=== PATIENT | male | born 1945 ===

== ENCOUNTER 2022-11-21 11:03 | Outpatient (AMB) | payer OTHER, SELFPAY ==
--- NOTE | 2022-11-21 11:05 | A.OFFPC_ITS ---
Vital Signs 11/21/22 11:09 Height 6 ft Weight 186 lb BMI 25.2 BP 132/80 Blood Pressure Location Lt brachial Position Sitting Pulse 72 Pulse Source Pulse Oximeter Pulse Oximetry (%) 98 Intake Visit Reasons: NPV-Diabetes Intake Note: pt is here for hand fabric cutter visit, [facility] Wood Heel Back Liner Required: Yes Wood Heel Back Liner Language: Passenger Service Agent Name: Dixon [id number] Information Interpreted: non-clinical & clinical Accompanied by: Grand Child Allergies No Known Allergies Allergy (Verified 11/21/22 11:28) Medication List - Last Reconciled 11/21/22 by Neo Miller PA-C carvedilol 6.25 mg PO BID clopidogrel 75 mg PO DAILY gabapentin 300 mg PO BID irbesartan-hydrochlorothiazide 300-12.5 mg 1 tab PO DAILY levothyroxine 25 mcg PO DAILY metformin 1,000 mg PO BID omega-3 acid ethyl esters 1 cap PO DAILY pantoprazole 40 mg PO DAILY Tobacco use date assessed: 11/21/22 Fall risk assessment: No Falls in past year Last assessed Fall Risk: 11/21/22 Dental Screening Dental Screen Date: 11/21/22 Did you have a dental visit in the last 12 months?: No Did you have a dental problem in the last 6 months where you did not have access to dental care?: No Was dental information given to patient?: Patient declined HPI NPV-Diabetes HPI Details Patient is a 77-year-old male here today for new patient visit. Patient recently moved from [place] and Bengali-speaking only thus using an flash designer today in office.. Has multiple medical conditions including type 2 diabetes, hypertension, hypothyroidism, coronary artery disease. Cardiac problem: Patient does have a pacemaker in place unclear reason why though reports low heart rate. Likely had AV block. Will refer to cardiology for continued follow-up on his pacemaker. Type 2 diabetes: A1c today at 8.2. Patient continues on metformin a 1000 b.i.d.. [facility] Surgical History (Updated 11/21/22 @ 11:35 by Neo Miller PA-C) History of prostate surgery S/P cardiac pacemaker procedure S/P eye surgery S/P knee surgery Social History Housing: House Alcohol intake: never Patient Tobacco Use Status: Never used Tobacco e-Cigarette/Vaping Use: Never Used Current occupational status: retired Cognitive needs: No Hearing needs: No Vision needs: No Questionnaire PHQ-9 Over the last 2 weeks, how often have you been bothered by any of the following problems? 1. Little interest or pleasure in doing things: not at all 2. Feeling down, depressed, or hopeless: not at all 3. Trouble falling or staying asleep, or sleeping too much: not at all 4. Feeling tired or having little energy: not at all 5. Poor appetite or overeating: not at all 6. Feeling bad about yourself - or that you are a failure or have let yourself or your family down: not at all 7. Trouble concentrating on things, such as reading the newspaper or watching television: not at all 8. Moving or speaking so slowly that other people could have noticed. Or the opposite - being so fidgety or restless that you have been moving around a lot more than usual: not at all 9. Thoughts that you would be better off or of hurting yourself in some way: not at all Total score: 0 Depression Screening Interpretation: Negative 33843 - PHQ-9 Billing: Yes Source: Developed by Drs. Didier Webb, Flaquita Dallas, Joel Terrazas and colleagues, with an educational tayler from [employer]. Thrive Questionnaire Date Thrive assessed: 11/21/22 I am a: Patient What is your living situation today?: I have a steady place to live Within the past 12 months, did the food you bought not last and you didn't have the money to get more?: Never true Within the past 12 months, did you worry whether your food would run out before you got money to buy more?: Never true Do you have trouble paying for medicines?: No Do you have trouble getting transportation to medical appointments?: No Do you have trouble paying your heating and electricity bill?: No Do you have trouble taking care of your child, family member or friend?: No Do you have trouble with day-to-day activities such as bathing, preparing meals, shopping, managing finances, etc.?: No Are you currently unemployed and looking for a job?: No Are you interested in more education?: No Please select the resources that you would like help with: None Currently or been in a relationship where the following occur: no concerns reported TIM-7 AMB Questionnaire TIM-7 Date TIM - 7 assessed: 11/21/22 Feeling nervous, anxious, or on edge: 0 = Not at all Not being able to stop or control worryin = Not at all Worrying too much about different things: 0 = Not at all Trouble relaxin = Not at all Being so restless that it is hard to sit still: 0 = Not at all Becoming easily annoyed or irritable: 0 = Not at all Feeling afraid as if something awful might happen: 0 = Not at all Total TIM-7 score (0-4 normal; 5-9 mild; 10-14 moderate; 15-21 severe): 0 Source: Developed by Drs. Didier Webb, Flaquita Dallas, Joel Terrazas and colleagues, with an educational tayler from [employer]. TIM-7 Assessment Billing TIM-7 Assessment Tool: TIM-7 Assessment 90295 Review of Systems Const Denies headache(s) Eyes Denies loss of vision ENT Denies vertigo, Denies dizziness, Denies headache(s) and Denies sore throat Card Denies chest pain, Denies leg edema and Denies lightheadedness Resp Denies cough, Denies hemoptysis and Denies wheezing GI Denies abdominal pain, Denies melena, Denies constipation, Denies diarrhea and Denies vomiting Denies dysuria, Denies urinary frequency and Denies urinary urgency Musc Denies arthralgias, Denies joint swelling, Denies numbness and Denies tingling Neuro Denies Abnormal speech present, Denies behavioral changes, Denies vertigo, Denies dizziness, Denies headache(s), Denies loss of vision, Denies memory loss, Denies numbness and Denies tingling Psych Denies anxiety, Denies behavioral changes, Denies depression, Denies memory loss and Denies panic attacks John/Lymph Denies easy bleeding and Denies easy bruising Aller/Immun Denies wheezing Physical exam (Primary Care) Vital Signs: Last Vital Signs Pulse 72 11/21/22 11:09 BP 132/80 11/21/22 11:09 Pulse Ox 98 11/21/22 11:09 BMI result Body Mass Index 25.2 Tobacco/Smoking Status: Tobacco use Status Tobacco use date assessed 11/21/22 11/21/22 11:22 Patient Tobacco Use Status Never used Tobacco 11/21/22 11:22 e-Cigarette/Vaping Use Never Used 11/21/22 11:22 PHQ-9: PHQ-9 Score PHQ-9: Total score 0 11/21/22 11:34 Depression Screening Interpretation: Negative Thrive Assessment: Date of Thrive Assessment Date Thrive assessed 11/21/22 11/21/22 11:25 Currently or been in a relationship where the following occur: no concerns reported Const General: healthy appearing, no acute distress, alert and awake Nutritional Appearance: well nourished Orientation/consciousness: oriented to person, oriented to place and oriented to time HENMT Ears: TM's normal bilaterally General nose exam: Normal nasal mucous membranes and turbinates present Eyes Conjunctivae: conjunctivae normal Sclerae: sclerae normal Pupils: Equal, round and reactive pupils present Neck Neck: Yes no lymphadenopathy and Yes no JVD Thyroid: Thyroid normal Carotids: no bruits Resp Effort & Inspection: normal respiratory effort and not tachypneic Auscultation: no crackles, no rales, no rhonchi and no wheezes Cardio Rate: regular rate Rhythm: regular rhythm Heart sounds: no murmurs and normal S1 and S2 GI Palpation (GI): Soft to palpation, nontender, no hepatomegaly and no splenomegaly Auscultation: normal bowel sounds Skin General skin exam: no rashes or lesions noted and dry skin Neuro General: oriented to person, oriented to place and oriented to time Cranial nerves: Yes Equal, round and reactive pupils present Speech: No Abnormal speech present Gait exam (Neuro): Normal gait present Motor exam (neuro): no tremor noted Extrem Right upper extremity: full ROM Left upper extremity: full ROM Right lower extremity: full ROM; no edema Left lower extremity: full ROM; no edema Psych Mental Status: mental status grossly normal Speech and movement: Normal speech and movement present Affect: normal affect Attitude: cooperative Thought process: Normal thought process present Results AMB Hemoglobin A1c AMB Hemoglobin A1c 8.2 % Last Edit by Jose Mehta CMA on 11/21/22 11: 41 Results Reviewed Results Reviewed: Laboratory Last Values Hgb A1c (Clinic) 8.2 % (4.0-6.0) H 11/21/22 11:40 Assessment and Plan Assessment & Plan (1) HTN (hypertension): Code(s): I10 - Essential (primary) hypertension Qualifiers: Hypertension type: primary hypertension Qualified Code(s): I10 - Essential (primary) hypertension Plan: Patient's blood pressure acceptable today in office. Will continue his current dose of antihypertensive medication with goal blood pressure to be below 140/90 (2) HLD (hyperlipidemia): Code(s): E78.5 - Hyperlipidemia, unspecified Qualifiers: Hyperlipidemia type: mixed hyperlipidemia Qualified Code(s): E78.2 - Mixed hyperlipidemia Plan: Patient currently in not on statin therapy. Will check fasting lipids to assure LDL below 100 and if so will consider starting statin (3) DMII (diabetes mellitus, type 2): Code(s): E11.9 - Type 2 diabetes mellitus without complications Qualifiers: Diabetes mellitus complication status: with hyperglycemia Diabetes mellitus ocean transportation intermediary insulin use: without fpc use Qualified Code(s): E11.65 - Type 2 diabetes mellitus with hyperglycemia Plan: Patient's type 2 diabetes suboptimally controlled with A1c at 8.2 today. Will work 1st on lifestyle modifications to help reduce his A1c below goal 8.0 (due to patient's age and comorbidities) (4) AV block, Mobitz 2: Code(s): I44.1 - Atrioventricular block, second degree (5) S/P cardiac pacemaker procedure: Comment: 10/20/2011 model ADDR01 Code(s): Z95.0 - Presence of cardiac pacemaker Plan: Has a Medtronic pacemaker was followed by network programmer while living in [place]. Unclear cardiac diagnosis though likely had AV block. Will try to set him up with local network programmer for continued pacemaker evaluation (6) Hypothyroid: Code(s): E03.9 - Hypothyroidism, unspecified Qualifiers: Hypothyroidism type: unspecified Qualified Code(s): E03.9 - Hypothyroidism, unspecified Plan: Patient continues on low-dose levothyroxine and will check a TSH to assure no rmal. Orders: Orders Comprehensive Evans. Panel Fast Today E11.65 - Type 2 diabetes mellitus with hyperglycemia Lipid Panel Today E78.2 - Mixed hyperlipidemia Prostate Specific Antigen Scr Today I10 - Essential (primary) hypertension, Z12.5 - Encounter for screening for malignant neoplasm of prostate Microalbumin, Random (w Creat) Today E11.65 - Type 2 diabetes mellitus with hyperglycemia Complete Blood Count no Diff Today I10 - Essential (primary) hypertension AMB Hemoglobin A1c Today E11.9 - Type 2 diabetes mellitus without complications Referrals Cardiology Referral I44.1 - Atrioventricular block, second degree, Z95.0 - Presence of cardiac pacemaker Medications: New carvedilol must administer with a meal/food 6.25 mg PO BID 90 days 180 tabs 2RF I44.1 - Atrioventricular block, second degree pantoprazole 40 mg PO DAILY 90 days 90 tabs 2RF K21.9 - Gastro-esophageal reflux disease without esophagitis clopidogrel 75 mg PO DAILY 90 tabs 2RF Z95.0 - Presence of cardiac pacemaker levothyroxine 25 mcg PO DAILY 90 caps 1RF E03.9 - Hypothyroidism, unspecified gabapentin 300 mg PO BID 90 days 180 caps 1RF E11.65 - Type 2 diabetes mellitus with hyperglycemia irbesartan-hydrochlorothiazide 300-12.5 mg 1 tab PO DAILY 90 days 90 tabs 2RF I10 - Essential (primary) hypertension metformin 1,000 mg PO BID 90 days 180 tabs 2RF E11.65 - Type 2 diabetes mellitus with hyperglycemia omega-3 acid ethyl esters 2 caps PO DAILY 90 days 180 caps 2RF E78.2 - Mixed hyperlipidemia Coding Level of Care Code New Pt Level 4 (17900) Diagnoses HTN (hypertension) I10 Hypertension type: primary hypertension HLD (hyperlipidemia) E78.2 Hyperlipidemia type: mixed hyperlipidemia DMII (diabetes mellitus, type 2) E11.65 Diabetes mellitus complication status: with hyperglycemia Diabetes mellitus fpc insulin use: without ocean transportation intermediary use AV block, Mobitz 2 I44.1 S/P cardiac pacemaker procedure Z95.0 Hypothyroid E03.9 Hypothyroidism type: unspecified Additional Codes TIM-7 Assessment Billing - TIM-7 Assessment Tool: TIM-7 Assessment 45803 ([id number])
[2022-11-21 11:09] VITALS: BP 132/80; PULSE 72; O2SAT 98; BMI 25.2
== END 2022-11-21 11:52 | disposition home or self-care (01) ==
PROVIDERS: PCP Physician Assistant; Visit Provider Physician Assistant
DX: I10 Essential (primary) hypertension (principal); E11.65 Type 2 diabetes mellitus with hyperglycemia; E03.9 Hypothyroidism, unspecified; E78.2 Mixed hyperlipidemia; I44.1 Atrioventricular block, second degree; Z95.0 Presence of cardiac pacemaker
CPT/HCPCS: 83036; 99204

== ENCOUNTER 2022-12-29 11:54 | Outpatient (REF) | payer OTHER, SELFPAY ==
[2022-12-29 13:54] LABS: Hematocrit 42.3 % (42.0-52.0); Hemoglobin 14.1 g/dl (14.0-18.0); Mean Corpuscular HGB Conc 33.3 g/dl (31.0-36.0); Mean Corpuscular Hemoglobin 30.8 pg (27.0-33.0); Mean Corpuscular Volume 92.4 fL (80.0-98.0); Mean Platelet Volume 10.6 fL (9.4-12.4); Platelet Count 217 X10*3/uL (160-400); Red Blood Count 4.58 X10*6/uL (4.60-5.80); Red Cell Distribution Width 13.4 % (11.0-16.0); White Blood Count 3.8 X10*3/uL (4.8-10.8)
[2022-12-29 14:29] LABS: Prostate Specific Antigen Scr 2.49 ng/mL (<0.05-4.0)
[2022-12-29 15:00] LABS: Alanine Aminotransferase 29 U/L (0-40); Albumin Level 4.1 g/dL (3.5-5.0); Alkaline Phosphatase 110 U/L (39-117); Anion Gap 11 (12-20); Aspartate Amino Transferase 22 U/L (5-37); Bilirubin Total 0.7 mg/dL (0.0-1.0); Blood Urea Nitrogen 15 mg/dL (9-16); Calcium 9.4 mg/dL (8.4-10.2); Carbon Dioxide 29 mmol/L (22-29); Chloride 103 mmol/L (96-108); Cholesterol 191 mg/dL (<200); Estimated Glomerular Filt Rate > 60; Glucose Fasting 154 mg/dL (60-99); HDL Cholesterol 41 mg/dL (>40); LDL Cholesterol Calculated 121 mg/dL (<100); Potassium 4.4 mmol/L (3.3-5.1); Sodium 139 mmol/L (135-145); Triglycerides 149 mg/dL (<150)
[2022-12-29 15:16] LABS: Microalbum/Creatinine Ratio Ur 38.5 ug/mg cr (<30)
== END 2022-12-29 11:55 | disposition home or self-care (01) ==
LOC: HO.HMGCLDS 11:54
PROVIDERS: PCP Physician Assistant; Visit Provider Physician Assistant
DX: Z12.5 Encounter for screening for malignant neoplasm of prostate (principal); E11.65 Type 2 diabetes mellitus with hyperglycemia; E78.2 Mixed hyperlipidemia; I10 Essential (primary) hypertension
CPT/HCPCS: 36415; 80053; 80061; 82043; 82570; 84153; 85027

== ENCOUNTER 2023-02-22 09:38 | Outpatient (AMB) | payer OTHER, SELFPAY ==
--- NOTE | 2023-02-22 09:41 | A.OFFVIS_ITS ---
Intake Vital Signs 02/22/23 09:42 Height 6 ft Weight 185 lb 3.013 oz BMI 25.1 BP 136/84 Blood Pressure Location Lt brachial Position Sitting Pulse 82 Intake Visit Reasons: NPV/Atrioventricular block/Pacemaker/N. Paul Intake Note: NPV w/ EKG Real Estate Analyst Required: No Accompanied by: granddaughter Allergies No Known Allergies Allergy (Verified 02/22/23 09:45) Medication List - Last Reconciled 02/22/23 by Polo Patterson MD carvedilol 6.25 mg PO BID 90 days clopidogrel 75 mg PO DAILY gabapentin 300 mg PO BID 90 days irbesartan-hydrochlorothiazide 300-12.5 mg 1 tab PO DAILY 90 days levothyroxine 25 mcg PO DAILY metformin 1,000 mg PO BID 90 days omega-3 acid ethyl esters 2 caps PO DAILY 90 days pantoprazole 40 mg PO DAILY 90 days simvastatin 20 mg PO DAILY 90 days HPI HPI Comments History of Present Illness Details Edi is here for consultation regarding various cardiac issues. Previously living in [place]. According to documentation, has a dual- chamber Medtronic pacemaker placed in 2016. Per last evaluation, listed to have battery life of 3 and half years. Atrial pacing was 100% but no significant trigger pacing. Also described to have coronary disease with PDA stenosis. Patient himself states he feels fine. No specific complaints like angina or shortness of breath or in fact anything cardiac sounding. Granddaughter is helping with interpretation. Appropriate form signed. COUNTS INCLUDE 234 BEDS AT THE [facility] Medical History (Updated 02/22/23 @ 10:01 by Polo Patterson MD) Atherosclerotic cardiovascular disease Surgical History S/P knee surgery History of prostate surgery S/P eye surgery S/P cardiac pacemaker procedure Family History (Updated 02/22/23 @ 09:46 by Diana Guzman) Mother No problems noted. Father No problems noted. Social History Housing: House Alcohol intake: never Patient Tobacco Use Status: Never used Tobacco e-Cigarette/Vaping Use: Never Used Current occupational status: retired Cognitive needs: No Hearing needs: No Vision needs: No Review of Systems Const Denies chills, Denies daytime sleepiness, Denies fatigue, Denies fever(s), Denies frequent falls, Denies night sweats, Denies snoring, Denies weakness, Denies weight gain and Denies weight loss Eyes Denies loss of vision ENT Denies dizziness and Denies hearing loss Card Denies chest pain, Denies chest pain with activity, Denies syncope, Denies rapid heart rate, Denies edema, Denies claudication, Denies leg edema, Denies lightheadedness, Denies palpitations, Denies dyspnea, Denies dyspnea on exertion and Denies orthopnea Resp Denies cough, Denies excessive phlegm production, Denies dyspnea, Denies dyspnea on exertion, Denies snoring and Denies wheezing GI Denies abdominal pain, Denies hematochezia, Denies change in bowel habits, Denies change in stool character, Denies heartburn, Denies nausea and Denies vomiting Denies hematuria, Denies dysuria and Denies urinary frequency Musc Denies arthralgias, Denies muscle weakness, Denies numbness and Denies tingling Skin/Breast Denies nail changes and Denies rash Neuro Denies Abnormal speech present, Denies dizziness, Denies syncope, Denies frequent falls, Denies loss of vision, Denies memory loss, Denies numbness, Denies tingling and Denies weakness Psych Denies depression and Denies memory loss Endo Denies fatigue and Denies palpitations Aller/Immun Denies wheezing Physical Exam Vital Signs: Last Vital Signs Pulse 82 02/22/23 09:42 BP 136/84 02/22/23 09:42 BMI result Body Mass Index 25.1 Const General: comfortable and no acute distress Orientation/consciousness: patient oriented x3 HEENT Other: Unremarkable Head: Yes normal to inspection Neck Neck: Yes normal visual inspection Chest Chest palpation & inspection: normal inspection of the chest Resp Auscultation: clear to auscultation bilaterally Cardio Palpation: normal PMI Heart sounds: S1 normal heart sound present, S2 normal heart sound present, no gallops, no murmurs and no rubs GI Palpation (GI): Soft to palpation Back/Spine/Pelvis Other: unremarkable Skin General skin exam: no rashes or lesions noted Neuro General: patient oriented x3 Speech: No Abnormal speech present Extrem General: Yes normal to inspection Psych Mental Status: mental status grossly normal Office Procedures EKG Details: EKG with ventricular paced rhythm at 82/Min. Computer reads atrial pacing as well but can't clearly see the spikes. [id number], Complete Assessment & Plan Assessment & Plan (1) Atherosclerotic cardiovascular disease: Code(s): I25.10 - Atherosclerotic heart disease of lime coronary artery without angina pectoris (2) S/P cardiac pacemaker procedure: Comment: 10/20/2011 model ADDR01 Code(s): Z95.0 - Presence of cardiac pacemaker Plan Per documentation patient has brought, Medtronic dual-chamber pacemaker from 2016. Will arrange interrogation formally. With regard to coronary disease, mention of distal PDA stenosis but no interventions. Clinically, he does not have any chest pain. Will get an echocardiogram for cardiac function assessment. Follow-up is scheduled with pacemaker evaluation. Orders: Orders CA echo transthoracic complete Today I25.10 - Atherosclerotic heart disease of lime coronary artery without angina pectoris Coding Level of Care Code New Pt Level 3 (64094) Diagnoses Atherosclerotic cardiovascular disease I25.10 S/P cardiac pacemaker procedure Z95.0 CPT Codes EKG - CPT: 40585-[id number], Complete ([id number])
[2023-02-22 09:42] VITALS: BP 136/84; PULSE 82; BMI 25.1
== END 2023-02-22 10:15 | disposition home or self-care (01) ==
PROVIDERS: PCP Physician Assistant; Visit Provider Internal Medicine
DX: I25.10 Atherosclerotic heart disease of native coronary artery without angina pectoris (principal); Z95.0 Presence of cardiac pacemaker
CPT/HCPCS: 93010; 99203

== ENCOUNTER → 2023-02-22 09:38 | Outpatient (BNVA) | payer OTHER, SELFPAY | PROVIDERS: PCP Physician Assistant; Visit Provider Internal Medicine | DX: I25.10 Atherosclerotic heart disease of native coronary artery without angina pectoris (principal); I10 Essential (primary) hypertension; I44.30 Unspecified atrioventricular block; Z95.0 Presence of cardiac pacemaker | CPT/HCPCS: 93005; 99202 ==

== ENCOUNTER → 2023-03-07 23:59 | Outpatient (BNV) | payer OTHER, SELFPAY ==
--- NOTE | 2023-03-14 12:39 | A.OFFVIS_ITS ---
Intake Intake Visit Reasons: Remote Device Check- Medtronic Allergies No Known Allergies Allergy (Verified 02/22/23 09:45) [facility] Medical History (Updated 03/15/23 @ 08:37 by Polo Patterson MD) Atherosclerotic cardiovascular disease Surgical History S/P knee surgery History of prostate surgery S/P eye surgery S/P cardiac pacemaker procedure Family History (Updated 02/22/23 @ 09:46 by Diana Guzman) Mother No problems noted. Father No problems noted. Social History Housing: House Alcohol intake: never Patient Tobacco Use Status: Never used Tobacco e-Cigarette/Vaping Use: Never Used Current occupational status: retired Cognitive needs: No Hearing needs: No Vision needs: No Office Procedures Cardiac Device Check Cardiac Device Check Details: Date of service- 03/07/2023 ; Battery life 24 months (7-41 months); normal lead parameters; AP <0.1%%; MUFFLE OPERATOR >99%; no significant arrhythmias. Overall normal device function. [id number] Cardiac Device Interrogation, pacemaker Procedure code (CPT) selection complete Assessment & Plan Assessment & Plan (1) Heart block: Code(s): I45.9 - Conduction disorder, unspecified Plan x Coding Level of Care Code Procedure Only Diagnoses Heart block I45.9 CPT Codes Cardiac Device Check - Cardiac Device 12: 36070-Adynoc Cardiac Device Interrogation, pacemaker ([id number])
== END ==
PROVIDERS: PCP Physician Assistant; Visit Provider Internal Medicine
DX: I45.9 Conduction disorder, unspecified (principal); Z95.0 Presence of cardiac pacemaker
CPT/HCPCS: 93294

== ENCOUNTER 2023-03-26 13:42 | Outpatient (AMB) | payer OTHER, SELFPAY ==
--- NOTE | 2023-03-26 13:55 | A.OFFVIS_ITS ---
Intake Vital Signs 03/26/23 13:56 Height 6 ft Weight 180 lb 12.465 oz BMI 24.5 BP 132/82 Blood Pressure Location Rt brachial Position Sitting Pulse 80 Pulse Source Pulse Oximeter Intake Visit Reasons: 1 mth fu after echo w/ medtronic Intake Note: 1 month follow up Manager Car Required: No Accompanied by: granddaughter Allergies No Known Allergies Allergy (Verified 03/26/23 13:55) Medication List - Last Reconciled 03/26/23 by Polo Patterson MD carvedilol 6.25 mg PO BID 90 days clopidogrel 75 mg PO DAILY gabapentin 300 mg PO BID 90 days irbesartan-hydrochlorothiazide 300-12.5 mg 1 tab PO DAILY 90 days levothyroxine 25 mcg PO DAILY metformin 1,000 mg PO BID 90 days omega-3 acid ethyl esters 2 caps PO DAILY 90 days pantoprazole 40 mg PO DAILY 90 days simvastatin 20 mg PO DAILY 90 days HPI HPI Comments History of Present Illness Details Edi returns for follow-up. Recently seen in consultation regarding various cardiac issues. Used to live in [place] but has moved here. According to documentation, has a dual-chamber Medtronic pacemaker placed in 2016. Also described to have coronary disease with PDA stenosis. Patient himself states he feels fine. No specific complaints like angina or shortness of breath or in fact anything cardiac sounding. Granddaughter is helping with interpretation. Appropriate form signed. [facility] Medical History (Updated 03/15/23 @ 08:37 by Polo Patterson MD) Atherosclerotic cardiovascular disease Surgical History S/P knee surgery History of prostate surgery S/P eye surgery S/P cardiac pacemaker procedure Family History Mother No problems noted. Father No problems noted. Social History Housing: House Alcohol intake: never Patient Tobacco Use Status: Never used Tobacco e-Cigarette/Vaping Use: Never Used Current occupational status: retired Cognitive needs: No Hearing needs: No Vision needs: No Review of Systems Const Denies weakness ENT Denies dizziness Card Denies chest pain, Denies chest pain with activity, Denies syncope, Denies rapid heart rate, Denies pedal edema, Denies edema, Denies leg edema, Denies lightheadedness, Denies palpitations, Denies dyspnea, Denies dyspnea on exertion and Denies orthopnea Resp Denies cough, Denies dyspnea and Denies dyspnea on exertion GI Denies hematochezia and Denies change in stool character Musc Denies abnormal gait, Denies muscle cramps, Denies muscle weakness, Denies numbness, Denies radiating pain into limb and Denies tingling Neuro Denies abnormal gait, Denies dizziness, Denies syncope, Denies numbness, Denies tingling and Denies weakness Endo Denies palpitations Physical Exam Vital Signs: Last Vital Signs Pulse 80 03/26/23 13:56 BP 132/82 03/26/23 13:56 BMI result Body Mass Index 24.5 Const General: comfortable and no acute distress Orientation/consciousness: patient oriented x3 HEENT Other: Unremarkable Head: Yes normal to inspection Neck Neck: Yes normal visual inspection Chest Chest palpation & inspection: normal inspection of the chest Resp Auscultation: clear to auscultation bilaterally Cardio Palpation: normal PMI Heart sounds: S1 normal heart sound present, S2 normal heart sound present, no gallops, no murmurs and no rubs GI Palpation (GI): Soft to palpation Back/Spine/Pelvis Other: unremarkable Skin General skin exam: no rashes or lesions noted Neuro General: patient oriented x3 Extrem General: Yes normal to inspection Psych Mental Status: mental status grossly normal Office Procedures Cardiac Device Check Cardiac Device Check Details: Pacemaker interrogated today. Dual-chamber device, programmed DDDR mode. Battery status 9-27 months. Atrial pacing 22%. Ventricular pacing 100%. Normal lead parameters. Overall, normal device function. [id number] Cardiac Device Check, pacemaker dual lead Procedure code (CPT) selection complete Assessment & Plan Assessment & Plan (1) Atherosclerotic cardiovascular disease: Code(s): I25.10 - Atherosclerotic heart disease of [place] coronary artery without angina pectoris Plan: Mention of distal PDA stenosis but no interventions. Clinically, he has got absolutely no angina. Lipids on the higher side and he just started statins. (2) S/P cardiac pacemaker procedure: Comment: 10/20/2011 model ADDR01 Code(s): Z95.0 - Presence of cardiac pacemaker Plan: Pacemaker is function normally. Will followed remotely. (3) HTN (hypertension): Code(s): I10 - Essential (primary) hypertension Qualifiers: Hypertension type: primary hypertension Qualified Code(s): I10 - Essential (primary) hypertension Plan: Stable. On carvedilol, irbesartan/hydrochlorothiazide. No changes. Coding Level of Care Code Est Pt Level 3 (98157) Diagnoses Atherosclerotic cardiovascular disease I25.10 S/P cardiac pacemaker procedure Z95.0 Primary hypertension I10 Hypertension type: primary hypertension CPT Codes Cardiac Device Check - Cardiac Device 2: [id number]-CV Cardiac Device Check, pacemaker dual lead ([id number])
[2023-03-26 13:56] VITALS: BP 132/82; PULSE 80; BMI 24.5
== END 2023-03-26 14:15 | disposition home or self-care (01) ==
PROVIDERS: PCP Physician Assistant; Visit Provider Internal Medicine
DX: I25.10 Atherosclerotic heart disease of native coronary artery without angina pectoris (principal); I10 Essential (primary) hypertension; I44.1 Atrioventricular block, second degree; Z95.0 Presence of cardiac pacemaker
CPT/HCPCS: 93280; 99213

== ENCOUNTER → 2023-03-26 13:42 | Outpatient (BNVA) | payer OTHER, SELFPAY | PROVIDERS: PCP Physician Assistant; Visit Provider Internal Medicine | DX: Z45.018 Encounter for adjustment and management of other part of cardiac pacemaker (principal); I25.10 Atherosclerotic heart disease of native coronary artery without angina pectoris; I10 Essential (primary) hypertension | CPT/HCPCS: 93280; 99212 ==

== ENCOUNTER 2023-07-25 10:47 | Outpatient (AMB) | payer MEDICARE, SELFPAY ==
[2023-07-25 10:59] VITALS: BP 118/64; PULSE 88; O2SAT 98; BMI 24.6
--- NOTE | 2023-07-25 10:59 | MHC.PC.OV ---
Vital Signs 07/25/23 10:59 Height 6 ft Weight 181 lb 8 oz BMI 24.6 BP 118/64 Blood Pressure Location Lt brachial Position Sitting Pulse 88 Pulse Source Pulse Oximeter Pulse Oximetry (%) 98 Oxygen Delivery Method Room Air Intake Visit Reasons: Pain in right arm R/S from 07/22 Intake Note: The patient presents with discomfort in the right shoulder extending down the entire right arm, along with ongoing right leg pain persisting for several months. Engineering Vice President Required: No Accompanied by: Grand Child Allergies No Known Allergies Allergy (Verified 07/25/23 11:15) Medication List - Last Reconciled 07/25/23 by Neo Miller PA-C carvedilol 6.25 mg PO BID 90 days clopidogrel 75 mg PO DAILY gabapentin 300 mg PO BID 90 days irbesartan-hydrochlorothiazide 300-12.5 mg 1 tab PO DAILY 90 days levothyroxine 25 mcg PO DAILY metformin 1,000 mg PO BID 90 days omega-3 acid ethyl esters 2 caps PO DAILY 90 days pantoprazole 40 mg PO DAILY 90 days simvastatin 20 mg PO DAILY 90 days Tobacco use date assessed: 07/25/23 Fall risk assessment: No Falls in past year Last assessed Fall Risk: 07/25/23 Dental Screening Dental Screen Date: 07/25/23 Did you have a dental visit in the last 12 months?: No Did you have a dental problem in the last 6 months where you did not have access to dental care?: No Was dental information given to patient?: Patient has dentist HPI Pain in right arm R/S from 07/22 HPI Details Patient is a 78-year-old male here today for problem visit. Has multiple medical conditions including type 2 diabetes, hypertension, hypothyroidism, coronary artery disease. Patient reports having right shoulder and pain over the last several months. He reports his pain radiates down right upper extremity in 2 forearm and wrist. Has use Tylenol though has not been effective. Also reports having knumbess in his bilateral lower extremities. CHRONIC MEDICAL PROBLEMS--> Av block/ pacemaker : Patient followed by Cardiology and pacemaker has been interrogated.. Type 2 diabetes: A1c today at 8.2. Patient continues on metformin a 1000 b.i.d.. [facility] Medical History (Updated 07/25/23 @ 11:24 by Neo Miller PA-C) Atherosclerotic cardiovascular disease Surgical History S/P knee surgery History of prostate surgery S/P eye surgery S/P cardiac pacemaker procedure Family History Mother No problems noted. Father No problems noted. Social History Housing: House Alcohol intake: never Patient Tobacco Use Status: Never used Tobacco e-Cigarette/Vaping Use: Never Used service: No Current occupational status: retired Cognitive needs: No Hearing needs: No Vision needs: No Questionnaire PHQ-9 Over the last 2 weeks, how often have you been bothered by any of the following problems? 1. Little interest or pleasure in doing things: not at all 2. Feeling down, depressed, or hopeless: not at all 3. Trouble falling or staying asleep, or sleeping too much: not at all 4. Feeling tired or having little energy: not at all 5. Poor appetite or overeating: not at all 6. Feeling bad about yourself - or that you are a failure or have let yourself or your family down: not at all 7. Trouble concentrating on things, such as reading the newspaper or watching television: not at all 8. Moving or speaking so slowly that other people could have noticed. Or the opposite - being so fidgety or restless that you have been moving around a lot more than usual: not at all 9. Thoughts that you would be better off or of hurting yourself in some way: not at all Total score: 0 Depression Screening Interpretation: Negative Depression Screening Done: Yes 21894 - PHQ-9 Billing: Yes Source: Developed by Drs. Didier Webb, Flaquita Dallas, Joel Terrazas and colleagues, with an educational tayler from [employer]. Thrive Questionnaire Date Thrive assessed: 07/25/23 I am a: Patient What is your living situation today?: I have a steady place to live Within the past 12 months, did the food you bought not last and you didn't have the money to get more?: Never true Within the past 12 months, did you worry whether your food would run out before you got money to buy more?: Never true Do you have trouble paying for medicines?: No Do you have trouble getting transportation to medical appointments?: No Do you have trouble paying your heating and electricity bill?: No Do you have trouble taking care of your child, family member or friend?: No Do you have trouble with day-to-day activities such as bathing, preparing meals, shopping, managing finances, etc.?: No Are you currently unemployed and looking for a job?: No Are you interested in more education?: No Please select the resources that you would like help with: None Currently or been in a relationship where the following occur: no concerns reported THRIVE Score: 0 AUDIT C Alcohol Use Questionnaire (AUDIT-C) 1. How often do you have a drink containing alcohol?: Never 3. How often do you have six or more drinks on one occasion?: Never Total Score: 0 TIM-7 AMB Questionnaire TIM-7 Date TIM - 7 assessed: 07/25/23 Feeling nervous, anxious, or on edge: 0 = Not at all Not being able to stop or control worryin = Not at all Worrying too much about different things: 0 = Not at all Trouble relaxin = Not at all Being so restless that it is hard to sit still: 0 = Not at all Becoming easily annoyed or irritable: 0 = Not at all Feeling afraid as if something awful might happen: 0 = Not at all Total TIM-7 score (0-4 normal; 5-9 mild; 10-14 moderate; 15-21 severe): 0 Source: Developed by Drs. Didier Webb, Flaquita Dallas, Joel Terrazas and colleagues, with an educational tayler from [employer]. TIM-7 Assessment Billing TIM-7 Assessment Tool: TIM-7 Assessment 98632 Review of Systems Const Denies headache(s) Eyes Denies loss of vision ENT Denies vertigo, Denies dizziness, Denies headache(s) and Denies sore throat Card Denies chest pain, Denies leg edema and Denies lightheadedness Resp Denies cough, Denies hemoptysis and Denies wheezing GI Denies abdominal pain, Denies melena, Denies constipation, Denies diarrhea and Denies vomiting Denies dysuria, Denies urinary frequency and Denies urinary urgency Musc Denies arthralgias, Denies joint swelling, Denies numbness and Denies tingling Neuro Denies Abnormal speech present, Denies behavioral changes, Denies vertigo, Denies dizziness, Denies headache(s), Denies loss of vision, Denies memory loss, Denies numbness and Denies tingling Psych Denies anxiety, Denies behavioral changes, Denies depression, Denies memory loss and Denies panic attacks John/Lymph Denies easy bleeding and Denies easy bruising Aller/Immun Denies wheezing Physical exam (Primary Care) Vital Signs: Last Vital Signs Pulse 88 07/25/23 10:59 BP 118/64 07/25/23 10:59 Pulse Ox 98 07/25/23 10:59 Oxygen Delivery Method Room Air 07/25/23 10:59 BMI result Body Mass Index 24.6 Tobacco/Smoking Status: Tobacco use Status Tobacco use date assessed 07/25/23 07/25/23 11:08 Patient Tobacco Use Status Never used Tobacco 07/25/23 11:03 e-Cigarette/Vaping Use Never Used 07/25/23 11:03 PHQ-9: PHQ-9 Score PHQ-9: Total score 0 07/25/23 11:17 Depression Screening Interpretation: Negative Thrive Assessment: Date of Thrive Assessment Date Thrive assessed 07/25/23 07/25/23 11:08 Currently or been in a relationship where the following occur: no concerns reported Const General: healthy appearing, no acute distress, alert and awake Nutritional Appearance: well nourished Orientation/consciousness: oriented to person, oriented to place and oriented to time HENMT Ears: TM's normal bilaterally General nose exam: Normal nasal mucous membranes and turbinates present Eyes Conjunctivae: conjunctivae normal Sclerae: sclerae normal Pupils: Equal, round and reactive pupils present Neck Neck: Yes no lymphadenopathy and Yes no JVD Thyroid: Thyroid normal Carotids: no bruits Resp Effort & Inspection: normal respiratory effort and not tachypneic Auscultation: no crackles, no rales, no rhonchi and no wheezes Cardio Rate: regular rate Rhythm: regular rhythm Heart sounds: no murmurs and normal S1 and S2 GI Palpation (GI): Soft to palpation, nontender, no hepatomegaly and no splenomegaly Auscultation: normal bowel sounds Skin General skin exam: no rashes or lesions noted and dry skin Neuro General: oriented to person, oriented to place and oriented to time Cranial nerves: Yes Equal, round and reactive pupils present Speech: No Abnormal speech present Gait exam (Neuro): Normal gait present Motor exam (neuro): no tremor noted Extrem Other: RIGHT SHOULDER: FULL RANGE OF MOTION, NEGATIVE EMPTY CAN, NEGATIVE BRANTLEY TEST. NO PALPABLE DEFORMITIES NOTED Right upper extremity: full ROM Left upper extremity: full ROM Right lower extremity: full ROM; no edema Left lower extremity: full ROM; no edema Psych Mental Status: mental status grossly normal Speech and movement: Normal speech and movement present Affect: normal affect Attitude: cooperative Thought process: Normal thought process present Assessment and Plan Assessment & Plan (1) Right shoulder pain: Code(s): M25.511 - Pain in right shoulder Qualifiers: Chronicity: chronic Qualified Code(s): M25.511 - Pain in right shoulder; G89.29 - Other chronic pain Plan: Patient reporting chronic right shoulder pain and right forearm pain. Denies any numbness or tingling. Likely has a tendinitis right shoulder and forearm. Would benefit from formal physical therapy though reports he does not interested in going to therapy as transportation is difficult. (2) DMII (diabetes mellitus, type 2): Code(s): E11.9 - Type 2 diabetes mellitus without complications Qualifiers: Diabetes mellitus complication status: with hyperglycemia Diabetes mellitus vocational placement specialist insulin use: without alf use Qualified Code(s): E11.65 - Type 2 diabetes mellitus with hyperglycemia Plan: Needs blood work and A1c evaluation. Patient's granddaughter prominences to get labs done fasting before next visit. (3) Diabetic neuropathy: Code(s): E11.40 - Type 2 diabetes mellitus with diabetic neuropathy, unspecified Qualifiers: Diabetes mellitus complication detail: diabetic polyneuropathy Diabetes mellitus type: type 2 Qualified Code(s): E11.42 - Type 2 diabetes mellitus with diabetic polyneuropathy Plan: Patient continues to have bilateral lower extremity numbness likely related to his diabetic neuropathy. Continues with gabapentin. Offered pain management evaluation for topical capsaicin treatment though he declines at this time. Orders: Orders XR shoulder RT min 2V Today G89.29 - Other chronic pain, M25.511 - Pain in right shoulder Comprehensive [place]. Panel Fast Today E11.65 - Type 2 diabetes mellitus with hyperglycemia Hemoglobin A1c Today E11.65 - Type 2 diabetes mellitus with hyperglycemia Lipid Panel Today E11.65 - Type 2 diabetes mellitus with hyperglycemia TSH reflex Free T4 Today E03.9 - Hypothyroidism, unspecified Prostate Specific Antigen Scr Today E03.9 - Hypothyroidism, unspecified, Z12.5 - Encounter for screening for malignant neoplasm of prostate Microalbumin, Random (w Creat) Today I10 - Essential (primary) hypertension Coding Level of Care Code Est Pt Level 4 (20179) Diagnoses Chronic right shoulder pain M25.511; G89.29 Chronicity: chronic Type 2 diabetes mellitus with hyperglycemia, without long-term current use of insulin E11.65 Diabetes mellitus complication status: with hyperglycemia Diabetes mellitus alf insulin use: without alf use Diabetic polyneuropathy associated with type 2 diabetes mellitus E11.42 Diabetes mellitus complication detail: diabetic polyneuropathy Diabetes mellitus type: type 2 Additional Codes TIM-7 Assessment Billing - TIM-7 Assessment Tool: TIM-7 Assessment 11891 ([id number])
== END 2023-07-25 11:40 | disposition home or self-care (01) ==
PROVIDERS: PCP Physician Assistant; Visit Provider Physician Assistant
DX: M25.511 Pain in right shoulder (principal); G89.29 Other chronic pain; E11.65 Type 2 diabetes mellitus with hyperglycemia; E11.42 Type 2 diabetes mellitus with diabetic polyneuropathy
CPT/HCPCS: 99214

== ENCOUNTER 2023-08-03 09:24 | Outpatient (REF) | payer MEDICARE, SELFPAY ==
--- NOTE | ~2023-08-03 | XR_ITS ---
EXAMINATION: XR SHOULDER, RIGHT CLINICAL INFORMATION: Pain in the right shoulder COMPARISON: None available. TECHNIQUE: AP external rotation, Grashey, scapular Y, and axillary views of the right shoulder. FINDINGS: There is moderate osteoarthritis of acromioclavicular joint manifested by marginal osteophytes. Glenohumeral joint: Normal. Incidental note made of a 5 mm dense nodular density in the partially visualized right chest overlying the fifth posterior rib probably reflecting a calcified granuloma XR/XR shoulder RT min 2V IMPRESSION: 1. Moderate osteoarthritis of the acromioclavicular joint. 2. Probable calcified granuloma in the right chest.
[2023-08-03 11:09] LABS: Estimated Average Glucose 197 mg/dL; Hemoglobin A1c % 8.5 % (<6.0)
[2023-08-03 11:35] LABS: Creatinine Urine 89.24 mg/dL; Microalbum/Creatinine Ratio Ur 52.6 ug/mg cr (<30)
[2023-08-03 11:55] LABS: Alanine Aminotransferase 36 U/L (0-40); Alkaline Phosphatase 113 U/L (39-117); Anion Gap 11 (12-20); Aspartate Amino Transferase 23 U/L (5-37); Bilirubin Total 0.6 mg/dL (0.0-1.0); Blood Urea Nitrogen 14 mg/dL (9-16); Calcium 9.1 mg/dL (8.4-10.2); Carbon Dioxide 30 mmol/L (22-29); Chloride 101 mmol/L (96-108); Cholesterol 148 mg/dL (<200); Estimated Glomerular Filt Rate > 60; Glucose Fasting 167 mg/dL (60-99); HDL Cholesterol 43 mg/dL (>40); LDL Cholesterol Calculated 79 mg/dL (<100); Potassium 3.8 mmol/L (3.3-5.1); Sodium 138 mmol/L (135-145); Triglycerides 131 mg/dL (<150)
[2023-08-03 11:58] LABS: TSH reflex Free T4 2.06 uIU/mL (0.32-4.0)
[2023-08-03 12:12] LABS: Prostate Specific Antigen Scr 2.77 ng/mL (<0.05-4.0)
== END 2023-08-03 09:25 | disposition home or self-care (01) ==
LOC: HO.HMGCX 09:24
PROVIDERS: PCP Physician Assistant; Visit Provider Physician Assistant
DX: M25.511 Pain in right shoulder (principal); G89.29 Other chronic pain; E11.65 Type 2 diabetes mellitus with hyperglycemia; I10 Essential (primary) hypertension; E03.9 Hypothyroidism, unspecified; Z12.5 Encounter for screening for malignant neoplasm of prostate
CPT/HCPCS: 36415; 73030; 80053; 80061; 82043; 82570; 83036; 84153; 84443

== ENCOUNTER 2023-12-24 13:54 | Outpatient (AMB) | payer MEDICARE, SELFPAY ==
--- NOTE | 2023-12-24 13:58 | A.OFFPC_ITS ---
Vital Signs 12/24/23 14:06 Height 6 ft Weight 184 lb BMI 25.0 BP 132/80 Blood Pressure Location Lt brachial Position Sitting Pulse 88 Pulse Source Pulse Oximeter Pulse Oximetry (%) 97 Oxygen Delivery Method Room Air Intake Visit Reasons: f/u DMII/ HLD Intake Note: Pt is here for DMII/HLD. Application for disabled parking placard/Plate given to pt. Risk Management Analyst Required: No Accompanied by: Grandson Allergies No Known Allergies Allergy (Verified 12/24/23 14:09) Medication List - Last Reconciled 12/24/23 by Neo Miller PA-C carvedilol 6.25 mg PO BID 90 days clopidogrel 75 mg PO DAILY gabapentin 300 mg PO BID 90 days irbesartan-hydrochlorothiazide 300-12.5 mg 1 tab PO DAILY 90 days levothyroxine 25 mcg PO DAILY metformin 1,000 mg PO BID 90 days omega-3 acid ethyl esters 2 caps PO DAILY 90 days pantoprazole 40 mg PO DAILY 90 days pioglitazone (Actos) 15 mg PO DAILY simvastatin 20 mg PO DAILY 90 days Tobacco use date assessed: 07/25/23 Dental Screening Dental Screen Date: 07/25/23 HPI f/u DMII/ HLD HPI Details Patient is a 78-year-old male here today for follow-up visit Patient has a past medical history which including type 2 diabetes, heart block, s/p pacemaker placement, hypertension, hypothyroidism, coronary artery disease. CHRONIC MEDICAL PROBLEMS--> Av block/ pacemaker : Patient followed by Cardiology and pacemaker has been interrogated. He otherwise denies any syncopal episodes, palpitations or chest pains. Type 2 diabetes: Most recent A1c at 8.5. Patient continues on metformin a 1000 b.i.d in Actos 30 mg.. He does continue to have signs symptoms consistent with a lower extremity neuropathy. Does take gabapentin for his neuropathy. .. Hypothyroidism: Continues on levothyroxine 25 mcg on good most recent TSH stable. .. Hyperlipidemia: Most recent fasting labs showing appropriate total cholesterol and LDL Laboratory Tests 11/21/22 12/29/22 12/29/22 11:40 12:00 12:05 Fasting Glucose Hgb A1c (Clinic) 8.2 H Hemoglobin A1c % Cholesterol LDL Cholesterol, C alc 121 H TSH Urine Microalbumin 59.0 08/03/23 09:30 Fasting Glucose 167 H Hgb A1c (Clinic) Hemoglobin A1c % 8.5 H Cholesterol 148 LDL Cholesterol, C alc 79 TSH 2.06 Urine Microalbumin 47.0 PFSH Medical History Atherosclerotic cardiovascular disease Surgical History S/P knee surgery History of prostate surgery S/P eye surgery S/P cardiac pacemaker procedure Family History Mother No problems noted. Father No problems noted. Social History Housing: House Alcohol intake: never Patient Tobacco Use Status: Never used Tobacco e-Cigarette/Vaping Use: Never Used service: No Current occupational status: retired Cognitive needs: No Hearing needs: No Vision needs: No Questionnaire Thrive Questionnaire Date Thrive assessed: 07/25/23 TIM-7 AMB Questionnaire TIM-7 Date TIM - 7 assessed: 07/25/23 Source: Developed by Drs. Didier Webb, Flaquita Dallas, Joel Terrazas and colleagues, with an educational tayler from [employer]. Review of Systems Const Denies headache(s) Eyes Denies loss of vision ENT Denies vertigo, Denies dizziness, Denies headache(s) and Denies sore throat Card Denies chest pain, Denies leg edema and Denies lightheadedness Resp Denies cough, Denies hemoptysis and Denies wheezing GI Denies abdominal pain, Denies melena, Denies constipation, Denies diarrhea and Denies vomiting Denies dysuria, Denies urinary frequency and Denies urinary urgency Musc Denies arthralgias, Denies joint swelling, Denies numbness and Denies tingling Neuro Denies Abnormal speech present, Denies behavioral changes, Denies vertigo, Denies dizziness, Denies headache(s), Denies loss of vision, Denies memory loss, Denies numbness and Denies tingling Psych Denies anxiety, Denies behavioral changes, Denies depression, Denies memory loss and Denies panic attacks John/Lymph Denies easy bleeding and Denies easy bruising Aller/Immun Denies wheezing Physical exam (Primary Care) Vital Signs: Last Vital Signs Pulse 88 12/24/23 14:06 BP 132/80 12/24/23 14:06 Pulse Ox 97 12/24/23 14:06 Oxygen Delivery Method Room Air 12/24/23 14:06 BMI result Body Mass Index 25.0 Tobacco/Smoking Status: Tobacco use Status Tobacco use date assessed 07/25/23 12/24/23 13:59 Patient Tobacco Use Status Never used Tobacco 12/24/23 13:59 e-Cigarette/Vaping Use Never Used 12/24/23 13:59 Thrive Assessment: Date of Thrive Assessment Date Thrive assessed 07/25/23 12/24/23 13:59 Const General: healthy appearing, no acute distress, alert and awake Nutritional Appearance: well nourished Orientation/consciousness: oriented to person, oriented to place and oriented to time HENMT Ears: TM's normal bilaterally General nose exam: Normal nasal mucous membranes and turbinates present Eyes Conjunctivae: conjunctivae normal Sclerae: sclerae normal Pupils: Equal, round and reactive pupils present Neck Neck: Yes no lymphadenopathy and Yes no JVD Thyroid: Thyroid normal Carotids: no bruits Resp Effort & Inspection: normal respiratory effort and not tachypneic Auscultation: no crackles, no rales, no rhonchi and no wheezes Cardio Rate: regular rate Rhythm: regular rhythm Heart sounds: no murmurs and normal S1 and S2 GI Palpation (GI): Soft to palpation, nontender, no hepatomegaly and no splenomegaly Auscultation: normal bowel sounds Skin General skin exam: no rashes or lesions noted and dry skin Neuro General: oriented to person, oriented to place and oriented to time Cranial nerves: Yes Equal, round and reactive pupils present Speech: No Abnormal speech present Gait exam (Neuro): Normal gait present Motor exam (neuro): no tremor noted Extrem Right upper extremity: full ROM Left upper extremity: full ROM Right lower extremity: full ROM; no edema Left lower extremity: full ROM; no edema Psych Mental Status: mental status grossly normal Speech and movement: Normal speech and movement present Affect: normal affect Attitude: cooperative Thought process: Normal thought process present Results AMB Hemoglobin A1c AMB Hemoglobin A1c 8.2 % Last Edit by GABRIELA Desai on 12/24/23 14:18 Results Reviewed Results Reviewed: Laboratory Last Values Hgb A1c (Clinic) 8.2 % (4.0-6.0) H 12/24/23 13:56 Assessment and Plan Assessment & Plan (1) DMII (diabetes mellitus, type 2): Code(s): E11.9 - Type 2 diabetes mellitus without complications Qualifiers: Diabetes mellitus correction insulin use: without equipment operator intermodal yard use Diabetes mellitus complication status: with hyperglycemia Qualified Code(s): E11.65 - Type 2 diabetes mellitus with hyperglycemia Plan: Patient type 2 diabetes suboptimally controlled with today's A1c at 8.2 from 8.5. He does admit to dietary indiscretion will try to reduce his carbohydrates in his diet. At this time continue his metformin and Actos doses. Goal A1c is to be below 7.0 (2) Diabetic neuropathy: Code(s): E11.40 - Type 2 diabetes mellitus with diabetic neuropathy, unspecified Qualifiers: Diabetes mellitus type: type 2 Diabetes mellitus complication detail: diabetic polyneuropathy Qualified Code(s): E11.42 - Type 2 diabetes mellitus with diabetic polyneuropathy Plan: Patient continues to have bilateral lower extremity numbness likely related to his diabetic neuropathy. Continues with gabapentin. Offered pain management evaluation for topical capsaicin treatment though he declines at this time. (3) HTN (hypertension): Code(s): I10 - Essential (primary) hypertension Qualifiers: Hypertension type: primary hypertension Qualified Code(s): I10 - Essential (primary) hypertension Plan: Patient's blood pressure acceptable today in office, will continue current dose of antihypertensive medication. Goal blood pressures to remain below 140/90 (4) HLD (hyperlipidemia): Code(s): E78.5 - Hyperlipidemia, unspecified Qualifiers: Hyperlipidemia type: mixed hyperlipidemia Qualified Code(s): E78.2 - Mixed hyperlipidemia Plan: Patient's most recent lipid panel showing excellent control of his total cholest charisse and LDL. He will continue current dose of therapy. Goal LDL to remain below 100 (5) Hypothyroid: Code(s): E03.9 - Hypothyroidism, unspecified Qualifiers: Hypothyroidism type: unspecified Qualified Code(s): E03.9 - Hypothyroid ism, unspecified Plan: Most recent TSH stable. Continues on low-dose levothyroxine with good effect. Will continue to follow TSH to assure normal (6) Heart block: Code(s): I45.9 - Conduction disorder, unspecified Plan: Seems to have been stable from a cardiovascular point of view. Does have pacemaker in place. He has been asymptomatic. Now followed by [facility] Orders: Orders TSH reflex Free T4 Today E03.9 - Hypothyroidism, unspecified Lipid Panel Today E78.2 - Mixed hyperlipidemia AMB Hemoglobin A1c Today E11.65 - Type 2 diabetes mellitus with hyperglycemia Complete Blood Count no Diff Today K21.9 - Gastro-esophageal reflux disease without esophagitis Comprehensive [place]. Panel Fast Today E11.65 - Type 2 diabetes mellitus with hyperglycemia Referrals Ophthalmology Referral E11.65 - Type 2 diabetes mellitus with hyperglycemia Patient Instructions: Goal: A1c to be below 8.0, LDL to remain below 100 Barriers: Adherence to physical activity and healthy eating habits Coding Level of Care Code Est Pt Level 4 (68138) Diagnoses Type 2 diabetes mellitus with hyperglycemia, without long-term current use of insulin E11.65 Diabetes mellitus equipment operator intermodal yard insulin use: without equipment operator intermodal yard use Diabetes mellitus complication status: with hyperglycemia Diabetic polyneuropathy associated with type 2 diabetes mellitus E11.42 Diabetes mellitus type: type 2 Diabetes mellitus complication detail: diabetic polyneuropathy Primary hypertension I10 Hypertension type: primary hypertension Mixed hyperlipidemia E78.2 Hyperlipidemia type: mixed hyperlipidemia Hypothyroidism, unspecified type E03.9 Hypothyroidism type: unspecified Heart block I45.9
[2023-12-24 14:06] VITALS: BP 132/80; PULSE 88; O2SAT 97; BMI 25.0
== END 2023-12-24 14:30 | disposition home or self-care (01) ==
PROVIDERS: PCP Physician Assistant; Visit Provider Physician Assistant
DX: E11.65 Type 2 diabetes mellitus with hyperglycemia (principal); E11.42 Type 2 diabetes mellitus with diabetic polyneuropathy; I10 Essential (primary) hypertension; E78.2 Mixed hyperlipidemia; E03.9 Hypothyroidism, unspecified; I45.9 Conduction disorder, unspecified
CPT/HCPCS: 83036; 99214

== ENCOUNTER 2024-01-29 12:27 | Outpatient (AMB) | payer MEDICARE, SELFPAY ==
--- NOTE | 2024-01-29 12:44 | MHC.OFFVIS ---
Vital Signs 01/29/24 12:47 Height 6 ft Weight 185 lb 3.013 oz BMI 25.1 BP 128/74 Blood Pressure Location Lt brachial Position Sitting Pulse 84 Intake Visit Reasons: fu w/ [employer] Collar Folder Operator Required: Yes Collar Folder Operator Services: Collar Folder Operator Offered & Declined Collar Folder Operator Name: Sylvia-niece Accompanied by: Nephew or Niece Allergies No Known Allergies Allergy (Verified 12/24/23 14:09) Medication List - Last Reconciled 01/29/24 by Polo Patterson MD carvedilol 6.25 mg PO BID 90 days clopidogrel 75 mg PO DAILY gabapentin 300 mg PO BID 90 days irbesartan-hydrochlorothiazide 300-12.5 mg 1 tab PO DAILY 90 days levothyroxine 25 mcg PO DAILY metformin 1,000 mg PO BID 90 days omega-3 acid ethyl esters 2 caps PO DAILY 90 days pantoprazole 40 mg PO DAILY 90 days pioglitazone (Actos) 15 mg PO DAILY simvastatin 20 mg PO DAILY 90 days HPI Comments Details: Edi returns for follow-up. Used to live in [place] but has moved here. According to documentation, has a dual-chamber [employer] pacemaker placed in 2016. Also described to have coronary disease with PDA stenosis. Patient does not have any cardiac symptoms including coronary disease or myocardial infarction or cardiomyopathy or in fact anything cardiac sounding. He states he feels fine. Granddaughter is also here. [facility] Medical History Atherosclerotic cardiovascular disease Surgical History S/P knee surgery History of prostate surgery S/P eye surgery S/P cardiac pacemaker procedure Family History Mother No problems noted. Father No problems noted. Social History Housing: House Alcohol intake: never Patient Tobacco Use Status: Never used Tobacco e-Cigarette/Vaping Use: Never Used service: No Current occupational status: retired Cognitive needs: No Hearing needs: No Vision needs: No Review of Systems Const Denies chills, Denies fatigue, Denies fever(s), Denies weight gain and Denies weight loss ENT Denies dizziness Card Denies chest pain, Denies leg edema, Denies lightheadedness, Denies palpitations, Denies dyspnea on exertion, Denies orthopnea and Denies other Resp Denies cough and Denies dyspnea on exertion GI Denies hematochezia and Denies change in stool character Musc Denies abnormal gait, Denies muscle weakness, Denies numbness, Denies radiating pain into limb and Denies tingling Neuro Denies abnormal gait, Denies dizziness, Denies numbness and Denies tingling Endo Denies fatigue and Denies palpitations Physical Exam Vital Signs: Last Vital Signs Pulse 84 01/29/24 12:47 BP 128/74 01/29/24 12:47 BMI result Body Mass Index 25.1 Const General: comfortable and no acute distress Orientation/consciousness: patient oriented x3 HEENT Other: Unremarkable Head: Yes normal to inspection Neck Neck: Yes normal visual inspection Chest Chest palpation & inspection: normal inspection of the chest Resp Auscultation: clear to auscultation bilaterally Cardio Palpation: normal PMI Heart sounds: S1 normal heart sound present, S2 normal heart sound present, no gallops, no murmurs and no rubs GI Palpation (GI): Soft to palpation Back/Spine/Pelvis Other: unremarkable Skin General skin exam: no rashes or lesions noted Neuro General: patient oriented x3 Extrem General: Yes normal to inspection Psych Mental Status: mental status grossly normal Office Procedures Cardiac Device Check Cardiac Device Check Details: Pacemaker interrogated today. Dual-chamber device, programmed DDDR. Battery status 21 months. Normal lead parameters. Pacemaker dependent. NSVT episode, 3 seconds about a year ago but nothing recurrent. Otherwise, no significant arrhythmias. Overall, normal device function. [id number] Cardiac Device Check, pacemaker dual lead Procedure code (CPT) selection complete EKG Details: EKG with atrial sensed, ventricular paced rhythm at 84/Min. [id number], Complete Assessment & Plan Assessment & Plan (1) Atherosclerotic cardiovascular disease: Code(s): I25.10 - Atherosclerotic heart disease of [place] coronary artery without angina pectoris Category: Medical Plan: Mention of distal PDA stenosis but no interventions. Clinically, he has got absolutely no angina. Continue statins. (2) S/P cardiac pacemaker procedure: Code(s): Z95.0 - Presence of cardiac pacemaker Category: Surgical Plan: Normal function. For some reason, not getting remote monitoring. Discussed with granddaughter today. (3) HTN (hypertension): Code(s): I10 - Essential (primary) hypertension Category: Medical Qualifiers: Hypertension type: primary hypertension Qualified Code(s): I10 - Essential (primary) hypertension Plan: Stable. On carvedilol, irbesartan/hydrochlorothiazide. No changes. Coding Level of Care Code Est Pt Level 4 (02045) Diagnoses Atherosclerotic cardiovascular disease I25.10 S/P cardiac pacemaker procedure Z95.0 Primary hypertension I10 Hypertension type: primary hypertension CPT Codes Cardiac Device Check - Cardiac Device 2: [id number] Cardiac Device Check, pacemaker dual lead ([id number]) EKG - CPT: 46022-[id number], Complete ([id number])
[2024-01-29 12:47] VITALS: BP 128/74; PULSE 84; BMI 25.1
== END 2024-01-29 13:12 | disposition home or self-care (01) ==
PROVIDERS: PCP Physician Assistant; Visit Provider Internal Medicine
DX: I25.10 Atherosclerotic heart disease of native coronary artery without angina pectoris (principal); Z95.0 Presence of cardiac pacemaker; I10 Essential (primary) hypertension
CPT/HCPCS: 93010; 93280; 99214

== ENCOUNTER → 2024-01-29 12:27 | Outpatient (BNVA) | payer MEDICARE, SELFPAY | PROVIDERS: PCP Physician Assistant; Visit Provider Internal Medicine | DX: Z45.018 Encounter for adjustment and management of other part of cardiac pacemaker (principal); I25.10 Atherosclerotic heart disease of native coronary artery without angina pectoris; I10 Essential (primary) hypertension; R94.31 Abnormal electrocardiogram [ECG] [EKG] | CPT/HCPCS: 93005; 93280; 99212 ==

== ENCOUNTER 2024-03-21 10:52 | Outpatient (REF) | payer MEDICARE, SELFPAY ==
[2024-03-21 13:16] LABS: Hematocrit 41.3 % (42.0-52.0); Hemoglobin 14.2 g/dl (14.0-18.0); Mean Corpuscular HGB Conc 34.4 g/dl (31.0-36.0); Mean Platelet Volume 10.3 fL (9.4-12.4); Platelet Count 195 X10*3/uL (160-400); Red Blood Count 4.44 X10*6/uL (4.60-5.80); Red Cell Distribution Width 12.3 % (11.0-16.0); White Blood Count 4.5 X10*3/uL (4.8-10.8)
[2024-03-21 13:51] LABS: Alanine Aminotransferase 28 U/L (0-40); Alkaline Phosphatase 94 U/L (39-117); Anion Gap 12 (12-20); Aspartate Amino Transferase 20 U/L (5-37); Bilirubin Total 0.7 mg/dL (0.0-1.0); Blood Urea Nitrogen 15 mg/dL (9-16); Carbon Dioxide 29 mmol/L (22-29); Chloride 103 mmol/L (96-108); Cholesterol 179 mg/dL (<200); Estimated Glomerular Filt Rate > 60; Glucose Fasting 167 mg/dL (60-99); HDL Cholesterol 43 mg/dL (>40); LDL Cholesterol Calculated 98 mg/dL (<100); Sodium 140 mmol/L (135-145); TSH reflex Free T4 3.63 uIU/mL (0.32-4.0); Total Protein 7.1 g/dL (6.5-8.0); Triglycerides 192 mg/dL (<150)
== END 2024-03-21 10:53 | disposition home or self-care (01) ==
LOC: HO.HMGCLDS 10:52
PROVIDERS: PCP Physician Assistant; Visit Provider Physician Assistant
DX: K21.9 Gastro-esophageal reflux disease without esophagitis (principal); E03.9 Hypothyroidism, unspecified; E78.2 Mixed hyperlipidemia; E11.65 Type 2 diabetes mellitus with hyperglycemia
CPT/HCPCS: 36415; 80053; 80061; 84443; 85027

== ENCOUNTER 2024-04-01 09:45 | Outpatient (AMB) | payer MEDICARE, SELFPAY ==
[2024-04-01 09:58] VITALS: BP 122/80; PULSE 88; O2SAT 94; BMI 24.7
--- NOTE | 2024-04-01 09:58 | MHC.PC.OV ---
Vital Signs 04/01/24 09:58 Height 6 ft Weight 182 lb BMI 24.7 BP 122/80 Blood Pressure Location Lt brachial Position Sitting Pulse 88 Pulse Source Pulse Oximeter Pulse Oximetry (%) 94 Oxygen Delivery Method Room Air Intake Visit Reasons: Follow-up type 2 diabetes, hyperlipidemia Physical Sciences Instructor Required: No Accompanied by: Grand Son Allergies No Known Allergies Allergy (Verified 04/01/24 10:30) Medication List - Last Reconciled 04/01/24 by Neo Miller PA-C carvedilol 6.25 mg PO BID 90 days clopidogrel 75 mg PO DAILY gabapentin 300 mg PO BID 90 days irbesartan-hydrochlorothiazide 300-12.5 mg 1 tab PO DAILY 90 days levothyroxine 25 mcg PO DAILY metformin 1,000 mg PO BID 90 days omega-3 acid ethyl esters 2 caps PO DAILY 90 days pantoprazole 40 mg PO DAILY 90 days pioglitazone (Actos) 15 mg PO DAILY simvastatin 20 mg PO DAILY 90 days Tobacco use date assessed: 07/25/23 Fall risk assessment: No Falls in past year Last assessed Fall Risk: 04/01/24 Dental Screening Dental Screen Date: 07/25/23 HPI Follow-up type 2 diabetes, hyperlipidemia HPI Details Patient is a 78-year-old male here today for follow-up visit Patient has a past medical history which including type 2 diabetes, heart block, s/p pacemaker placement, hypertension, hypothyroidism, coronary artery disease. Concern--> reports some increased lower back pain and bilateral lower extremity heaviness. CHRONIC MEDICAL PROBLEMS--> Av block/ pacemaker : Patient followed by Cardiology and pacemaker has been interrogated. He otherwise denies any syncopal episodes, palpitations or chest pains. Type 2 diabetes: Most recent A1c elevated at 8.5. Patient continues on metformin a 1000 b.i.d in Actos 30 mg.. He does continue to have signs symptoms consistent with a lower extremity neuropathy. Does take gabapentin for his neuropathy. .. Hypothyroidism: Continues on levothyroxine 25 mcg on good most recent TSH stable. .. Hyperlipidemia: Most recent fasting labs showing appropriate total cholesterol and LDL Laboratory Tests 08/03/23 12/24/23 03/21/24 09:30 13:56 10:56 RBC 4.44 L Hgb 14.2 Creatinine 0.87 Fasting Glucose 167 H Hgb A1c (Clinic) 8.2 H Cholesterol 179 LDL Cholesterol, C alc 98 TSH 3.63 Urine Microalbumin 47.0 PFSH Medical History Atherosclerotic cardiovascular disease Surgical History S/P knee surgery History of prostate surgery S/P eye surgery S/P cardiac pacemaker procedure Family History Mother No problems noted. Father No problems noted. Social History Housing: House Alcohol intake: never Patient Tobacco Use Status: Never used Tobacco e-Cigarette/Vaping Use: Never Used service: No Current occupational status: retired Cognitive needs: No Hearing needs: No Vision needs: No Questionnaire Thrive Questionnaire Date Thrive assessed: 07/25/23 AUDIT C Alcohol Use Questionnaire (AUDIT-C) 3. How often do you have six or more drinks on one occasion?: Never Total Score: 0 TIM-7 AMB Questionnaire TIM-7 Date TIM - 7 assessed: 07/25/23 Source: Developed by Drs. Didier Webb, Flaquita Dallas, Joel Terrazas and colleagues, with an educational tayler from [employer]. Review of Systems Const Denies headache(s) Eyes Denies loss of vision ENT Denies vertigo, Denies dizziness, Denies headache(s) and Denies sore throat Card Denies chest pain, Denies leg edema and Denies lightheadedness Resp Denies cough, Denies hemoptysis and Denies wheezing GI Denies abdominal pain, Denies melena, Denies constipation, Denies diarrhea and Denies vomiting Denies dysuria, Denies urinary frequency and Denies urinary urgency Musc Reports back pain, Denies arthralgias, Denies joint swelling, Denies numbness and Denies tingling Neuro Denies Abnormal speech present, Denies behavioral changes, Denies vertigo, Denies dizziness, Denies headache(s), Denies loss of vision, Denies memory loss, Denies numbness and Denies tingling Psych Denies anxiety, Denies behavioral changes, Denies depression, Denies memory loss and Denies panic attacks John/Lymph Denies easy bleeding and Denies easy bruising Aller/Immun Denies wheezing Physical exam (Primary Care) Vital Signs: Last Vital Signs Pulse 88 04/01/24 09:58 BP 122/80 04/01/24 09:58 Pulse Ox 94 04/01/24 09:58 Oxygen Delivery Method Room Air 04/01/24 09:58 BMI result Body Mass Index 24.7 Tobacco/Smoking Status: Tobacco use Status Tobacco use date assessed 07/25/23 04/01/24 10:00 Patient Tobacco Use Status Never used Tobacco 04/01/24 10:00 e-Cigarette/Vaping Use Never Used 04/01/24 10:00 Thrive Assessment: Date of Thrive Assessment Date Thrive assessed 07/25/23 04/01/24 10:00 Const General: healthy appearing, no acute distress, alert and awake Nutritional Appearance: well nourished Orientation/consciousness: oriented to person, oriented to place and oriented to time HENMT Ears: TM's normal bilaterally General nose exam: Normal nasal mucous membranes and turbinates present Eyes Conjunctivae: conjunctivae normal Sclerae: sclerae normal Pupils: Equal, round and reactive pupils present Neck Neck: Yes no lymphadenopathy and Yes no JVD Thyroid: Thyroid normal Carotids: no bruits Resp Effort & Inspection: normal respiratory effort and not tachypneic Auscultation: no crackles, no rales, no rhonchi and no wheezes Cardio Rate: regular rate Rhythm: regular rhythm Heart sounds: no murmurs and normal S1 and S2 GI Palpation (GI): Soft to palpation, nontender, no hepatomegaly and no splenomegaly Auscultation: normal bowel sounds Skin General skin exam: no rashes or lesions noted and dry skin Neuro General: oriented to person, oriented to place and oriented to time Cranial nerves: Yes Equal, round and reactive pupils present Speech: No Abnormal speech present Gait exam (Neuro): Normal gait present Motor exam (neuro): no tremor noted Extrem Right upper extremity: full ROM Left upper extremity: full ROM Right lower extremity: full ROM; no edema Left lower extremity: full ROM; no edema Psych Mental Status: mental status grossly normal Speech and movement: Normal speech and movement present Affect: normal affect Attitude: cooperative Thought process: Normal thought process present Office Procedures Flu Questionnaire Does the patient have a severe egg allergy?: No Results AMB Hemoglobin A1c AMB Hemoglobin A1c 8.5 % Last Edit by GABRIELA Desai on 04/01/24 10:30 Immunizations Fluarix Triv [id number] (PF) 45 mcg (15 mcg x 3)/0.5 mL IM syringe Performing Provider: Neo Miller PA-C Performing Location: [facility] – [place] [facility] Documented (not given) by: GABRIELA Desai on 04/01/24 10:20 Reason Not Given: Patient Refused Results Reviewed Results Reviewed: Laboratory Last Values Hgb A1c (Clinic) 8.5 % (4.0-6.0) H 04/01/24 09:54 Coding Level of Care Code Est Pt Level 4 (61575) Diagnoses Mixed hyperlipidemia E78.2 Hyperlipidemia type: mixed hyperlipidemia Primary hypertension I10 Hypertension type: primary hypertension Type 2 diabetes mellitus with hyperglycemia, without long-term current use of insulin E11.65 Diabetes mellitus complication status: with hyperglycemia Diabetes mellitus keno terminal operator insulin use: without keno terminal operator use Hypothyroidism, unspecified type E03.9 Hypothyroidism type: unspecified Diabetic polyneuropathy associated with type 2 diabetes mellitus E11.42 Diabetes mellitus complication detail: diabetic polyneuropathy Diabetes mellitus type: type 2 Lumbar back pain M54.50 Assessment & Plan Assessment & Plan (1) HLD (hyperlipidemia): Code(s): E78.5 - Hyperlipidemia, unspecified Category: Medical Qualifiers: Hyperlipidemia type: mixed hyperlipidemia Qualified Code(s): E78.2 - Mixed hyperlipidemia Plan: Patient's most recent lipid panel showing excellent control of his total cholesterol and LDL. Will continue his current dose statin therapy with goal LDL to remain below 100 (2) HTN (hypertension): Code(s): I10 - Essential (primary) hypertension Category: Medical Qualifiers: Hypertension type: primary hypertension Qualified Code(s): I10 - Essential (primary) hypertension Plan: Patient's blood pressure acceptable today in office. Will continue his current dose of antihypertensive medication with goal blood pressure to be below 140/90 (3) DMII (diabetes mellitus, type 2): Code(s): E11.9 - Type 2 diabetes mellitus without complications Category: Medical Qualifiers: Diabetes mellitus complication status: with hyperglycemia Diabetes mellitus keno terminal operator insulin use: without long-term use Qualified Code(s): E11.65 - Type 2 diabetes mellitus with hyperglycemia Plan: Patient's type 2 diabetes suboptimally controlled with A1c at 8.5. He will make some dietary changes. Will continue his current medication. Goal A1c is to be below 8.0 (4) Hypothyroid: Code(s): E03.9 - Hypothyroidism, unspecified Category: Medical Qualifiers: Hypothyroidism type: unspecified Qualified Code(s): E03.9 - Hypothyroidism, unspecified Plan: Most recent TSH stable. Will continue current dose of levothyroxine. Will continue to follow TSH to assure normal (5) Diabetic neuropathy: Code(s): E11.40 - Type 2 diabetes mellitus with diabetic neuropathy, unspecified Category: Medical Qualifiers: Diabetes mellitus complication detail: diabetic polyneuropathy Diabetes mellitus type: type 2 Qualified Code(s): E11.42 - Type 2 diabetes mellitus with diabetic polyneuropathy Plan: Patient does report some heaviness in bilateral lower extremities which could be related to his neuropathy over his lower lumbar spine disc disease. He is interested in slightly increasing his gabapentin to 400 b.i.d.. We did discuss the possibility of starting physical therapy though he is declines at this time. We also did discuss possibility of seeing pain management for pain reduction modality though he declines at this time. (6) Lumbar back pain: Code(s): M54.50 - Low back pain, unspecified Category: Medical Plan: As above Orders: Orders Hemoglobin A1c Today E11.65 - Type 2 diabetes mellitus with hyperglycemia Lipid Panel Today E78.2 - Mixed hyperlipidemia Comprehensive [place]. Panel Fast Today I10 - Essential (primary) hypertension Influenza [id number] Immunization Today Z23 - Encounter for immunization AMB Hemoglobin A1c Today E11.65 - Type 2 diabetes mellitus with hyperglycemia Microalbumin, Random (w Creat) Today I10 - Essential (primary) hypertension Complete Blood Count no Diff Today I10 - Essential (primary) hypertension Prostate Specific Antigen Scr Today I10 - Essential (primary) hypertension, Z12.5 - Encounter for screening for malignant neoplasm of prostate TSH reflex Free T4 Today E03.9 - Hypothyroidism, unspecified Medications: New gabapentin 400 mg PO BID 180 caps 1RF 90 days E11.42 - Type 2 diabetes mellitus with diabetic polyneuropathy Refilled levothyroxine 25 mcg PO DAILY 90 caps 1RF E03.9 - Hypothyroidism, unspecified omega-3 acid ethyl esters 2 caps PO DAILY 180 caps 2RF 90 days E78.2 - Mixed hyperlipidemia metformin 1,000 mg PO BID 180 tabs 2RF 90 days E11.65 - Type 2 diabetes mellitus with hyperglycemia
== END 2024-04-01 10:45 | disposition home or self-care (01) ==
PROVIDERS: PCP Physician Assistant; Visit Provider Physician Assistant
DX: E11.42 Type 2 diabetes mellitus with diabetic polyneuropathy (principal); E11.65 Type 2 diabetes mellitus with hyperglycemia; E78.2 Mixed hyperlipidemia; I10 Essential (primary) hypertension; E03.9 Hypothyroidism, unspecified; M54.50 Low back pain, unspecified

== ENCOUNTER → 2024-04-01 09:45 | Outpatient (BNVA) | payer MEDICARE, SELFPAY | PROVIDERS: PCP Physician Assistant; Visit Provider Physician Assistant | DX: E78.2 Mixed hyperlipidemia (principal); I10 Essential (primary) hypertension; E11.65 Type 2 diabetes mellitus with hyperglycemia; E03.9 Hypothyroidism, unspecified; E11.42 Type 2 diabetes mellitus with diabetic polyneuropathy; M54.50 Low back pain, unspecified | CPT/HCPCS: 83036; 99212 ==

== ENCOUNTER 2024-07-28 12:20 | Outpatient (AMB) | payer MEDICARE, SELFPAY ==
[2024-07-28 12:40] VITALS: BP 118/60; PULSE 78; BMI 24.7
--- NOTE | 2024-07-28 12:40 | A.OFFVIS_ITS ---
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 Physician/Allergy/Immunology Required: Yes Physician/Allergy/Immunology Services: Physician/Allergy/Immunology Offered & Declined Accompanied by: Grand Child Allergies No Known Allergies Allergy (Verified 04/01/24 10:30) Medication List - Last Reconciled 07/28/24 by Polo Patterson MD carvedilol 6.25 mg PO BID 90 days clopidogrel 75 mg PO DAILY gabapentin 400 mg PO BID 90 days irbesartan-hydrochlorothiazide 300-12.5 mg 1 tab PO DAILY 90 days levothyroxine 25 mcg PO DAILY metformin 1,000 mg PO BID 90 days omega-3 acid ethyl esters 2 caps PO DAILY 90 days pantoprazole 40 mg PO DAILY 90 days pioglitazone (Actos) 15 mg PO DAILY simvastatin 20 mg PO DAILY 90 days HPI Comments Details: Edi returns for follow-up. Used to live in [place] but has moved here. According to documentation, has a dual-chamber Medtronic pacemaker placed in 2016. Also described to have coronary disease with PDA stenosis. Patient does not have any cardiac symptoms including coronary disease or myocardial infarction or cardiomyopathy or in fact anything cardiac sounding. He states he feels fine. Granddaughter is also here. Since last seen, no new issues. Feeling good. [facility] Medical History Atherosclerotic cardiovascular disease Surgical History S/P knee surgery History of prostate surgery S/P eye surgery S/P cardiac pacemaker procedure Family History Mother No problems noted. Father No problems noted. Social History Housing: House Alcohol intake: never Patient Tobacco Use Status: Never used Tobacco e-Cigarette/Vaping Use: Never Used service: No Current occupational status: retired Cognitive needs: No Hearing needs: No Vision needs: No Review of Systems Const Denies weakness ENT Denies dizziness Card Denies chest pain, Denies chest pain with activity, Denies syncope, Denies rapid heart rate, Denies pedal edema, Denies edema, Denies leg edema, Denies lightheadedness, Denies palpitations, Denies dyspnea, Denies dyspnea on exertion and Denies orthopnea Resp Denies cough, Denies dyspnea and Denies dyspnea on exertion GI Denies hematochezia and Denies change in stool character Musc Denies abnormal gait, Denies muscle cramps, Denies muscle weakness, Denies numbness, Denies radiating pain into limb and Denies tingling Neuro Denies abnormal gait, Denies dizziness, Denies syncope, Denies numbness, Denies tingling and Denies weakness Endo Denies palpitations Physical Exam Vital Signs: Last Vital Signs Pulse 78 07/28/24 12:40 BP 118/60 07/28/24 12:40 BMI result Body Mass Index 24.7 Const General: comfortable and no acute distress Orientation/consciousness: patient oriented x3 HEENT Other: Unremarkable Head: Yes normal to inspection Neck Neck: Yes normal visual inspection Chest Chest palpation & inspection: normal inspection of the chest Resp Auscultation: clear to auscultation bilaterally Cardio Palpation: normal PMI Heart sounds: S1 normal heart sound present, S2 normal heart sound present, no gallops, no murmurs and no rubs GI Palpation (GI): Soft to palpation Back/Spine/Pelvis Other: unremarkable Skin General skin exam: no rashes or lesions noted Neuro General: patient oriented x3 Extrem General: Yes normal to inspection Psych Mental Status: mental status grossly normal Office Procedures Cardiac Device Check Cardiac Device Check Details: Pacemaker interrogated today. Dual-chamber device, programmed DDDR. Battery status around 7 months. Normal lead parameters. No alerts. [id number] Cardiac Device Check, pacemaker dual lead Procedure code (CPT) selection complete Assessment & Plan Assessment & Plan (1) Atherosclerotic cardiovascular disease: Code(s): I25.10 - Atherosclerotic heart disease of [place] coronary artery without angina pectoris Category: Medical Plan: Mention of distal PDA stenosis but no interventions. Clinically, he has got absolutely no angina. Listed to be on Plavix/statins. No changes. Per prior notes, described to have preserved LVEF on echo/mild mitral r egurgitation. (2) S/P cardiac pacemaker procedure: Code(s): Z95.0 - Presence of cardiac pacemaker Category: Surgical Plan: Normal function. Requested granddaughter send the transmissions monthly to follow up on battery life. (3) HTN (hypertension): Code(s): I10 - Essential (primary) hypertension Category: Medical Qualifiers: Hypertension type: primary hypertension Qualified Code(s): I10 - Essential (primary) hypertension Plan: Stable. On carvedilol, irbesartan/hydrochlorothiazide. No changes. Plan Discussed with granddaughter who came for appointment. Coding Level of Care Code Est Pt Level 4 (72750) Complex EM visit Add On G2211 Diagnoses Atherosclerotic cardiovascular disease I25.10 S/P cardiac pacemaker procedure Z95.0 Primary hypertension I10 Hypertension type: primary hypertension CPT Codes Cardiac Device Check - Cardiac Device 2: [id number] Cardiac Device Check, pacemaker dual lead ([id number])
== END 2024-07-28 12:57 | disposition home or self-care (01) ==
LOC: HO.HCS 12:27
PROVIDERS: PCP Physician Assistant; Visit Provider Internal Medicine
DX: I25.10 Atherosclerotic heart disease of native coronary artery without angina pectoris (principal); Z95.0 Presence of cardiac pacemaker; I10 Essential (primary) hypertension
CPT/HCPCS: 93280; 99214; G2211

== ENCOUNTER → 2024-07-28 12:20 | Outpatient (BNVA) | payer MEDICARE, SELFPAY | PROVIDERS: PCP Physician Assistant; Visit Provider Internal Medicine | DX: I25.10 Atherosclerotic heart disease of native coronary artery without angina pectoris (principal); I10 Essential (primary) hypertension; Z95.0 Presence of cardiac pacemaker | CPT/HCPCS: 93280; 99212 ==

== ENCOUNTER → 2024-08-14 23:59 | Outpatient (BNV) | payer MEDICARE, SELFPAY ==
--- NOTE | 2024-08-26 09:44 | A.OFFVIS_ITS ---
Intake Visit Reasons: Remote Device Check- Medtronic Allergies No Known Allergies Allergy (Verified 04/01/24 10:30) [facility] Medical History Atherosclerotic cardiovascular disease Surgical History S/P knee surgery History of prostate surgery S/P eye surgery S/P cardiac pacemaker procedure Family History Mother No problems noted. Father No problems noted. Social History Housing: House Alcohol intake: never Patient Tobacco Use Status: Never used Tobacco e-Cigarette/Vaping Use: Never Used service: No Current occupational status: retired Cognitive needs: No Hearing needs: No Vision needs: No Office Procedures Cardiac Device Check Cardiac Device Check Details: Date of service- 08/14/2024 ; Battery life 14 months; 1-27 months; normal lead parameters; AP 43%; [employer] 100%; no significant arrhythmias. Overall normal device function. [id number] Cardiac Device Interrogation, pacemaker Procedure code (CPT) selection complete Assessment & Plan Assessment & Plan (1) S/P cardiac pacemaker procedure: Code(s): Z95.0 - Presence of cardiac pacemaker Category: Surgical (2) Heart block: Code(s): I45.9 - Conduction disorder, unspecified Category: Medical Plan x Coding Level of Care Code Procedure Only Diagnoses S/P cardiac pacemaker procedure Z95.0 Heart block I45.9 CPT Codes Cardiac Device Check - Cardiac Device 12: [id number] Cardiac Device Interrogation, pacemaker ([id number])
== END ==
PROVIDERS: PCP Physician Assistant; Visit Provider Internal Medicine
DX: I45.9 Conduction disorder, unspecified (principal); Z95.0 Presence of cardiac pacemaker
CPT/HCPCS: 93294

== ENCOUNTER 2024-09-30 09:49 | Outpatient (AMB) | payer MEDICARE, SELFPAY ==
[2024-09-30 10:05] VITALS: BP 122/80; PULSE 88; TEMP 36.3; O2SAT 97; BMI 24.6
--- NOTE | 2024-09-30 10:05 | MHC.PC.OV ---
Vital Signs 09/30/24 10:05 Height 6 ft Weight 181 lb 8 oz BMI 24.6 BP 122/80 Blood Pressure Location Lt brachial Position Sitting Pulse 88 Pulse Source Pulse Oximeter Temp 97.3 F Temp Source Temporal Artery Scan Pulse Oximetry (%) 97 Oxygen Delivery Method Room Air Intake Visit Reasons: Follow-up type 2 diabetes Allergies No Known Allergies Allergy (Verified 09/30/24 10:22) Medication List - Last Reconciled 09/30/24 by Neo Miller PA-C carvedilol 6.25 mg PO BID 90 days clopidogrel 75 mg PO DAILY gabapentin 400 mg PO BID 90 days irbesartan-hydrochlorothiazide 300-12.5 mg 1 tab PO DAILY 90 days levothyroxine 25 mcg PO DAILY metformin 1,000 mg PO BID 90 days omega-3 acid ethyl esters 2 caps PO DAILY 90 days pantoprazole 40 mg PO DAILY 90 days pioglitazone (Actos) 15 mg PO DAILY simvastatin 20 mg PO DAILY 90 days Tobacco use date assessed: 07/25/23 Dental Screening Dental Screen Date: 07/25/23 HPI Follow-up type 2 diabetes HPI Details Patient is a 79-year-old male here today for follow-up visit Patient has a past medical history which including type 2 diabetes, heart block, s/p pacemaker placement, hypertension, hypothyroidism, coronary artery disease. CHRONIC MEDICAL PROBLEMS--> Av block/ pacemaker : Patient followed by Cardiology and pacemaker has been interrogated. He otherwise denies any syncopal episodes, palpitations or chest pains. Type 2 diabetes: . Patient continues on metformin a 1000 b.i.d. . Today's A1c at 8.8 from 8.5. He admits he has not been taking Actos He does continue to have signs symptoms consistent with a lower extremity neuropathy. Does take gabapentin for his neuropathy. .. Hypothyroidism: Continues on levothyroxine 25 mcg on good most recent TSH stable. .. Hyperlipidemia: Most recent fasting labs showing appropriate total cholesterol and LDL PFSH Medical History Atherosclerotic cardiovascular disease Surgical History S/P knee surgery History of prostate surgery S/P eye surgery S/P cardiac pacemaker procedure Family History Mother No problems noted. Father No problems noted. Social History Housing: House Alcohol intake: never Patient Tobacco Use Status: Never used Tobacco e-Cigarette/Vaping Use: Never Used service: No Current occupational status: retired Cognitive needs: No Hearing needs: No Vision needs: No Questionnaire PHQ-9 Over the last 2 weeks, how often have you been bothered by any of the following problems? 1. Little interest or pleasure in doing things: not at all 2. Feeling down, depressed, or hopeless: not at all 3. Trouble falling or staying asleep, or sleeping too much: not at all 4. Feeling tired or having little energy: not at all 5. Poor appetite or overeating: not at all 6. Feeling bad about yourself - or that you are a failure or have let yourself or your family down: not at all 7. Trouble concentrating on things, such as reading the newspaper or watching television: not at all 8. Moving or speaking so slowly that other people could have noticed. Or the opposite - being so fidgety or restless that you have been moving around a lot more than usual: not at all 9. Thoughts that you would be better off or of hurting yourself in some way: not at all Total score: 0 Depression Screening Interpretation: Negative Depression Screening Done: Yes 99330 - PHQ-9 Billing: Yes Source: Developed by Drs. Didier Webb, Flaquiat Dallas, Joel Terrazas and colleagues, with an educational tayler from [employer]. Thrive Questionnaire Date Thrive assessed: 07/25/23 I am a: Parent/Caregiver What is your living situation today?: I have a steady place to live Within the past 12 months, did the food you bought not last and you didn't have the money to get more?: Never true Within the past 12 months, did you worry whether your food would run out before you got money to buy more?: Never true Do you have trouble paying for medicines?: No Do you have trouble getting transportation to medical appointments?: No Do you have trouble paying your heating and electricity bill?: No Do you have trouble taking care of your child, family member or friend?: No Do you have trouble with day-to-day activities such as bathing, preparing meals, shopping, managing finances, etc.?: No Are you currently unemployed and looking for a job?: No Are you interested in more education?: No Please select the resources that you would like help with: None Currently or been in a relationship where the following occur: I choose not to answer THRIVE Score: 0 AUDIT C Alcohol Use Questionnaire (AUDIT-C) 1. How often do you have a drink containing alcohol?: Never Total Score: 0 TIM-7 AMB Questionnaire TIM-7 Date TIM - 7 assessed: 07/25/23 Feeling nervous, anxious, or on edge: 0 = Not at all Not being able to stop or control worryin = Not at all Worrying too much about different things: 0 = Not at all Trouble relaxin = Not at all Being so restless that it is hard to sit still: 0 = Not at all Becoming easily annoyed or irritable: 0 = Not at all Feeling afraid as if something awful might happen: 0 = Not at all Total TIM-7 score (0-4 normal; 5-9 mild; 10-14 moderate; 15-21 severe): 0 Source: Developed by Drs. Didier Webb, Flaquita Dallas, Joel Terrazas and colleagues, with an educational tayler from [employer]. Review of Systems Const Denies headache(s) Eyes Denies loss of vision ENT Denies vertigo, Denies dizziness, Denies headache(s) and Denies sore throat Card Denies chest pain, Denies leg edema and Denies lightheadedness Resp Denies cough, Denies hemoptysis and Denies wheezing GI Denies abdominal pain, Denies melena, Denies constipation, Denies diarrhea and Denies vomiting Denies dysuria, Denies urinary frequency and Denies urinary urgency Musc Denies arthralgias, Denies joint swelling, Denies numbness and Denies tingling Neuro Denies Abnormal speech present, Denies behavioral changes, Denies vertigo, Denies dizziness, Denies headache(s), Denies loss of vision, Denies memory loss, Denies numbness and Denies tingling Psych Denies anxiety, Denies behavioral changes, Denies depression, Denies memory loss and Denies panic attacks John/Lymph Denies easy bleeding and Denies easy bruising Aller/Immun Denies wheezing Physical exam (Primary Care) Vital Signs: Last Vital Signs Temp 97.3 F 09/30/24 10:05 Pulse 88 09/30/24 10:05 BP 122/80 09/30/24 10:05 Pulse Ox 97 09/30/24 10:05 Oxygen Delivery Method Room Air 09/30/24 10:05 BMI result Body Mass Index 24.6 Tobacco/Smoking Status: Tobacco use Status Tobacco use date assessed 07/25/23 09/30/24 10:07 Patient Tobacco Use Status Never used Tobacco 09/30/24 10:07 e-Cigarette/Vaping Use Never Used 09/30/24 10:07 PHQ-9: PHQ-9 Score PHQ-9: Total score 0 09/30/24 10:33 Depression Screening Interpretation: Negative Thrive Assessment: Date of Thrive Assessment Date Thrive assessed 07/25/23 09/30/24 10:07 Currently or been in a relationship where the following occur: I choose not to answer Const General: healthy appearing, no acute distress, alert and awake Nutritional Appearance: well nourished Orientation/consciousness: oriented to person, oriented to place and oriented to time HENMT Ears: TM's normal bilaterally General nose exam: Normal nasal mucous membranes and turbinates present Eyes Conjunctivae: conjunctivae normal Sclerae: sclerae normal Pupils: Equal, round and reactive pupils present Neck Neck: Yes no lymphadenopathy and Yes no JVD Thyroid: Thyroid normal Carotids: no bruits Resp Effort & Inspection: normal respiratory effort and not tachypneic Auscultation: no crackles, no rales, no rhonchi and no wheezes Cardio Rate: regular rate Rhythm: regular rhythm Heart sounds: no murmurs and normal S1 and S2 GI Palpation (GI): Soft to palpation, nontender, no hepatomegaly and no splenomegaly Auscultation: normal bowel sounds Skin General skin exam: no rashes or lesions noted and dry skin Neuro General: oriented to person, oriented to place and oriented to time Cranial nerves: Yes Equal, round and reactive pupils present Speech: No Abnormal speech present Gait exam (Neuro): Normal gait present Motor exam (neuro): no tremor noted Extrem Right upper extremity: full ROM Left upper extremity: full ROM Right lower extremity: full ROM; no edema Left lower extremity: full ROM; no edema Psych Mental Status: mental status grossly normal Speech and movement: Normal speech and movement present Affect: normal affect Attitude: cooperative Thought process: Normal thought process present Results AMB Hemoglobin A1c AMB Hemoglobin A1c 8.8 % Last Edit by GABRIELA Desai on 09/30/24 10:25 Results Reviewed Results Reviewed: Laboratory Last Values Hgb A1c (Clinic) 8.8 % (4.0-6.0) H 09/30/24 09:57 Coding Level of Care Code Est Pt Level 4 (47810) Diagnoses Type 2 diabetes mellitus with hyperglycemia, without long-term current use of insulin E11.65 Diabetes mellitus complication status: with hyperglycemia Diabetes mellitus intermediate frame tender insulin use: without long-term use Mixed hyperlipidemia E78.2 Hyperlipidemia type: mixed hyperlipidemia Primary hypertension I10 Hypertension type: primary hypertension Hypothyroidism, unspecified type E03.9 Hypothyroidism type: unspecified Additional Codes PHQ-9 - 67647 - PHQ-9 Billing: Yes ([id number]) Assessment & Plan Assessment & Plan (1) DMII (diabetes mellitus, type 2): Code(s): E11.9 - Type 2 diabetes mellitus without complications Category: Medical Qualifiers: Diabetes mellitus complication status: with hyperglycemia Diabetes mellitus long-term insulin use: without intermediate frame tender use Qualified Code(s): E11.65 - Type 2 diabetes mellitus with hyperglycemia Plan: Patient's type 2 diabetes suboptimally with A1c at 8.8 today. He has not been taking Actos. Will supply patient with another script of Actos and now understands to take both metformin and Actos for glycemic control.. He will make some dietary changes. Goal A1c is to be below 8.0 (2) HLD (hyperlipidemia): Code(s): E78.5 - Hyperlipidemia, unspecified Category: Medical Qualifiers: Hyperlipidemia type: mixed hyperlipidemia Qualified Code(s): E78.2 - Mixed hyperlipidemia Plan: Patient's most recent lipid panel showing excellent control of his total cholesterol and LDL. Will continue his current dose statin therapy with goal LDL to remain below 100 (3) HTN (hypertension): Code(s): I10 - Essential (primary) hypertension Category: Medical Qualifiers: Hypertension type: primary hypertension Qualified Code(s): I10 - Essential (primary) hypertension Plan: Patient's blood pressure acceptable today in office. Will continue his current dose of antihypertensive medication with goal blood pressure to be below 140/90 (4) Hypothyroid: Code(s): E03.9 - Hypothyroidism, unspecified Category: Medical Qualifiers: Hypothyroidism type: unspecified Qualified Code(s): E03.9 - Hypothyroidism, unspecified Plan: Most recent TSH stable. Will continue current dose of levothyroxine. Will continue to follow TSH to assure normal Orders: Orders AMB Hemoglobin A1c Today E11.65 - Type 2 diabetes mellitus with hyperglycemia Medications: Refilled pioglitazone (Actos) 15 mg PO DAILY 90 tabs 1RF E11.65 - Type 2 diabetes mellitus with hyperglycemia
== END 2024-09-30 10:33 | disposition home or self-care (01) ==
LOC: HO.HMCH 09:50
PROVIDERS: PCP Physician Assistant; Visit Provider Physician Assistant
DX: E11.65 Type 2 diabetes mellitus with hyperglycemia (principal); E78.2 Mixed hyperlipidemia; I10 Essential (primary) hypertension; E03.9 Hypothyroidism, unspecified

== ENCOUNTER → 2024-09-30 09:49 | Outpatient (BNVA) | payer MEDICARE, SELFPAY | PROVIDERS: PCP Physician Assistant; Visit Provider Physician Assistant | DX: E11.65 Type 2 diabetes mellitus with hyperglycemia (principal); I10 Essential (primary) hypertension; E03.9 Hypothyroidism, unspecified; I25.10 Atherosclerotic heart disease of native coronary artery without angina pectoris; E78.5 Hyperlipidemia, unspecified; E78.2 Mixed hyperlipidemia; Z95.0 Presence of cardiac pacemaker | CPT/HCPCS: 83036; 96127; 99212 ==

== ENCOUNTER 2024-10-16 11:33 | Outpatient (REF) | payer MEDICARE, SELFPAY ==
[2024-10-16 13:32] LABS: Hematocrit 37.1 % (42.0-52.0); Hemoglobin 12.8 g/dl (14.0-18.0); Mean Corpuscular HGB Conc 34.5 g/dl (31.0-36.0); Mean Corpuscular Hemoglobin 31.1 pg (27.0-33.0); Mean Corpuscular Volume 90.0 fL (80.0-98.0); NRBC Abs Auto 0.000 X10*3/uL (0.0-0.012); NRBC Pct Auto 0.0 /100WBC (0.0-0.2); Platelet Count 207 X10*3/uL (160-400); Red Blood Count 4.12 X10*6/uL (4.60-5.80); White Blood Count 3.4 X10*3/uL (4.8-10.8)
[2024-10-16 13:42] LABS: Hemoglobin A1C 251.9337 umol/L; Total Hemoglobin (HGBA1C) 3434.0315 umol/L
[2024-10-16 14:02] LABS: Alanine Aminotransferase 28 U/L (0-40); Albumin Level 4.0 g/dL (3.5-5.0); Alkaline Phosphatase 80 U/L (39-117); Anion Gap 10 (12-20); Aspartate Amino Transferase 24 U/L (5-37); Blood Urea Nitrogen 14 mg/dL (9-16); Calcium 8.6 mg/dL (8.4-10.2); Carbon Dioxide 25 mmol/L (22-29); Chloride 106 mmol/L (96-108); Cholesterol 188 mg/dL (<200); Estimated Glomerular Filt Rate > 60; HDL Cholesterol 40 mg/dL (>40); Potassium 4.1 mmol/L (3.3-5.1); Sodium 137 mmol/L (135-145); Total Protein 6.4 g/dL (6.5-8.0); Triglycerides 125 mg/dL (<150)
[2024-10-16 14:18] LABS: Microalbum/Creatinine Ratio Ur 52.6 ug/mg cr (<30)
== END 2024-10-16 11:34 | disposition home or self-care (01) ==
LOC: HO.HMGCLDS 11:33
PROVIDERS: PCP Physician Assistant; Visit Provider Physician Assistant
DX: Z12.5 Encounter for screening for malignant neoplasm of prostate (principal); E11.65 Type 2 diabetes mellitus with hyperglycemia; I10 Essential (primary) hypertension; E03.9 Hypothyroidism, unspecified; E78.2 Mixed hyperlipidemia
CPT/HCPCS: 36415; 80053; 80061; 82043; 82570; 83036; 84153; 84443; 85027

== ENCOUNTER 2024-10-27 13:32 | Outpatient (AMB) | payer MEDICARE, SELFPAY ==
--- NOTE | 2024-10-27 13:47 | MHC.OFFVIS ---
Vital Signs 10/27/24 13:48 Height 6 ft Weight 179 lb BMI 24.3 BP 120/68 Blood Pressure Location Lt brachial Position Sitting Pulse 81 Pulse Source Monitor Intake Visit Reasons: 3 mth f/up w/ medtronic Project Scientist Required: Yes Project Scientist Services: Project Scientist Offered & Declined Accompanied by: Grand Child Allergies No Known Allergies Allergy (Verified 09/30/24 10:22) Medication List - Last Reconciled 10/27/24 by Polo Patterson MD carvedilol 6.25 mg PO BID 90 days clopidogrel 75 mg PO DAILY gabapentin 400 mg PO BID 90 days irbesartan-hydrochlorothiazide 300-12.5 mg 1 tab PO DAILY 90 days levothyroxine 25 mcg PO DAILY metformin 1,000 mg PO BID 90 days omega-3 acid ethyl esters 2 caps PO DAILY 90 days pantoprazole 40 mg PO DAILY 90 days pioglitazone (Actos) 15 mg PO DAILY simvastatin 20 mg PO DAILY 90 days HPI Comments Details: Edi returns for follow-up. Used to live in [place] but has moved here. According to documentation, has a dual-chamber Medtronic pacemaker placed in 2016. Also described to have coronary disease with PDA stenosis. Patient does not have any cardiac symptoms including coronary disease or myocardial infarction or cardiomyopathy or in fact anything cardiac sounding. He states he feels fine. No cardiac symptoms. COUNT INCLUDES THE [facility] Medical History Atherosclerotic cardiovascular disease Surgical History S/P knee surgery History of prostate surgery S/P eye surgery S/P cardiac pacemaker procedure Family History Mother No problems noted. Father No problems noted. Social History Housing: House Alcohol intake: never Patient Tobacco Use Status: Never used Tobacco e-Cigarette/Vaping Use: Never Used service: No Current occupational status: retired Cognitive needs: No Hearing needs: No Vision needs: No Review of Systems Const Denies weakness ENT Denies dizziness Card Denies chest pain, Denies chest pain with activity, Denies syncope, Denies rapid heart rate, Denies pedal edema, Denies edema, Denies leg edema, Denies lightheadedness, Denies palpitations, Denies dyspnea, Denies dyspnea on exertion and Denies orthopnea Resp Denies cough, Denies dyspnea and Denies dyspnea on exertion GI Denies hematochezia and Denies change in stool character Musc Denies abnormal gait, Denies muscle cramps, Denies muscle weakness, Denies numbness, Denies radiating pain into limb and Denies tingling Neuro Denies abnormal gait, Denies dizziness, Denies syncope, Denies numbness, Denies tingling and Denies weakness Endo Denies palpitations Physical Exam Vital Signs: Last Vital Signs Pulse 81 10/27/24 13:48 BP 120/68 10/27/24 13:48 BMI result Body Mass Index 24.3 Const General: comfortable and no acute distress Orientation/consciousness: patient oriented x3 HEENT Other: Unremarkable Head: Yes normal to inspection Neck Neck: Yes normal visual inspection Chest Chest palpation & inspection: normal inspection of the chest Resp Auscultation: clear to auscultation bilaterally Cardio Palpation: normal PMI Heart sounds: S1 normal heart sound present, S2 normal heart sound present, no gallops, no murmurs and no rubs GI Palpation (GI): Soft to palpation Back/Spine/Pelvis Other: unremarkable Skin General skin exam: no rashes or lesions noted Neuro General: patient oriented x3 Extrem General: Yes normal to inspection Psych Mental Status: mental status grossly normal Office Procedures Cardiac Device Check Cardiac Device Check Details: Pacemaker interrogated today. Dual-chamber device, programmed DDDR. Battery status 13 months. Normal lead parameters. Atrial pacing 40%. Ventricular pacing 100%. Overall, normal device function. [id number] Cardiac Device Check, pacemaker dual lead Procedure code (CPT) selection complete EKG Details: EKG with AV, dual paced rhythm at 81/Min. [id number], Complete Assessment & Plan Assessment & Plan (1) Atherosclerotic cardiovascular disease: Code(s): I25.10 - Atherosclerotic heart disease of andreafski coronary artery without angina pectoris Category: Medical Plan: Mention of distal PDA stenosis but no interventions. Clinically, he has got absolutely no angina. Listed to be on Plavix/statins. No changes. Per prior notes, described to have preserved LVEF on echo/mild mitral regurgitation. (2) S/P cardiac pacemaker procedure: Code(s): Z95.0 - Presence of cardiac pacemaker Category: Surgical Plan: Normal function. We will recheck in 6 months. (3) HTN (hypertension): Code(s): I10 - Essential (primary) hypertension Category: Medical Qualifiers: Hypertension type: primary hypertension Qualified Code(s): I10 - Essential (primary) hypertension Plan: Stable. On carvedilol, irbesartan/hydrochlorothiazide. No changes. Plan The plan includes monitoring the pacemaker battery status closely, with a follow-up scheduled in six months to reassess the need for battery replacement. The patient is advised to continue current medications, as they are well-tolerated and effective. Patient was informed and verbally consented to the use of an ambient scribe for clinic note documentation during this visit. Patient Instructions: - Return for a follow-up in six months to check the pacemaker battery. Coding Level of Care Code Est Pt Level 3 (23320) Diagnoses Atherosclerotic cardiovascular disease I25.10 S/P cardiac pacemaker procedure Z95.0 Primary hypertension I10 Hypertension type: primary hypertension CPT Codes Cardiac Device Check - Cardiac Device 2: 43599-OO Cardiac Device Check, pacemaker dual lead ([id number]) EKG - CPT: 99933-Tzmcuzqkzrlkhvvvl, Complete ([id number])
[2024-10-27 13:48] VITALS: BP 120/68; PULSE 81; BMI 24.3
== END 2024-10-27 14:15 | disposition home or self-care (01) ==
LOC: HO.HCS 13:33
PROVIDERS: PCP Physician Assistant; Visit Provider Internal Medicine
DX: I25.10 Atherosclerotic heart disease of native coronary artery without angina pectoris (principal); Z95.0 Presence of cardiac pacemaker; I10 Essential (primary) hypertension
CPT/HCPCS: 93010; 93280; 99213

== ENCOUNTER → 2024-10-27 13:32 | Outpatient (BNVA) | payer MEDICARE, SELFPAY | PROVIDERS: PCP Physician Assistant; Visit Provider Internal Medicine | DX: I25.10 Atherosclerotic heart disease of native coronary artery without angina pectoris (principal); Z95.2 Presence of prosthetic heart valve; I10 Essential (primary) hypertension | CPT/HCPCS: 93005; 93280; 99212 ==

== ENCOUNTER → 2024-11-14 23:59 | Outpatient (BNV) | payer MEDICARE, SELFPAY ==
--- NOTE | 2024-11-26 20:11 | MHC.OFFVIS ---
Intake Visit Reasons: Remote Device Check- Medtronic Allergies No Known Allergies Allergy (Verified 09/30/24 10:22) [facility] Medical History Atherosclerotic cardiovascular disease Surgical History S/P knee surgery History of prostate surgery S/P eye surgery S/P cardiac pacemaker procedure Family History Mother No problems noted. Father No problems noted. Social History Housing: House Alcohol intake: never Patient Tobacco Use Status: Never used Tobacco e-Cigarette/Vaping Use: Never Used service: No Current occupational status: retired Cognitive needs: No Hearing needs: No Vision needs: No Office Procedures Cardiac Device Check Cardiac Device Check Details: Date of service- 11/14/2024 ; Battery life 13 months; normal lead parameters; AP 44%; [employer] 100%; no significant arrhythmias. Overall normal device function. [id number] Cardiac Device Interrogation, pacemaker Procedure code (CPT) selection complete Assessment & Plan Assessment & Plan (1) S/P cardiac pacemaker procedure: Code(s): Z95.0 - Presence of cardiac pacemaker Category: Surgical (2) Heart block: Code(s): I45.9 - Conduction disorder, unspecified Category: Medical Plan x Coding Level of Care Code Procedure Only Diagnoses S/P cardiac pacemaker procedure Z95.0 Heart block I45.9 CPT Codes Cardiac Device Check - Cardiac Device 12: [id number] Cardiac Device Interrogation, pacemaker ([id number])
== END ==
PROVIDERS: PCP Physician Assistant; Visit Provider Internal Medicine
DX: I45.9 Conduction disorder, unspecified (principal); Z95.0 Presence of cardiac pacemaker
CPT/HCPCS: 93294

== ENCOUNTER 2025-04-02 09:14 | Outpatient (REF) | payer MEDICARE, SELFPAY ==
[2025-04-02 10:20] LABS: MANUAL DIFF FLAG NO
[2025-04-02 10:41] LABS: Hematocrit 37.9 % (42.0-52.0); Hemoglobin 12.3 g/dl (14.0-18.0); Imm Gran Abs Auto 0.02 X10*3/uL (0.00-0.03); Imm Gran Pct Auto 0.5 % (0.0-0.4); Lymphocytes Absolute Auto 1.0 X10*3/uL (1.2-4.9); Mean Corpuscular HGB Conc 32.5 g/dl (31.0-36.0); Mean Corpuscular Hemoglobin 29.3 pg (27.0-33.0); Mean Corpuscular Volume 90.2 fL (80.0-98.0); NRBC Abs Auto 0.000 X10*3/uL (0.0-0.012); NRBC Pct Auto 0.0 /100WBC (0.0-0.2); Platelet Count 219 X10*3/uL (160-400); Red Blood Count 4.20 X10*6/uL (4.60-5.80); White Blood Count 3.9 X10*3/uL (4.8-10.8)
[2025-04-02 12:41] LABS: Alanine Aminotransferase 18 U/L (0-40); Albumin Level 4.0 g/dL (3.5-5.0); Alkaline Phosphatase 87 U/L (39-117); Anion Gap 11 (12-20); Aspartate Amino Transferase 21 U/L (5-37); Blood Urea Nitrogen 14 mg/dL (9-16); Calcium 8.8 mg/dL (8.4-10.2); Carbon Dioxide 29 mmol/L (22-29); Chloride 102 mmol/L (96-108); Cholesterol 193 mg/dL (<200); Estimated Glomerular Filt Rate > 60; HDL Cholesterol 37 mg/dL (>40); Potassium 3.9 mmol/L (3.3-5.1); Sodium 138 mmol/L (135-145); Total Protein 6.6 g/dL (6.5-8.0); Triglycerides 151 mg/dL (<150)
[2025-04-02 13:17] LABS: Reflex LDLD? No
== END 2025-04-02 09:15 | disposition home or self-care (01) ==
LOC: HO.HMGCLDS 09:14
PROVIDERS: PCP Student in an Organized Health Care Education/Training Program; Visit Provider Student in an Organized Health Care Education/Training Program
DX: Z00.00 Encounter for general adult medical examination without abnormal findings (principal); Z28.21 Immunization not carried out because of patient refusal; E78.2 Mixed hyperlipidemia; D64.9 Anemia, unspecified; E11.65 Type 2 diabetes mellitus with hyperglycemia; R05.9 Cough, unspecified
CPT/HCPCS: 36415; 80053; 80061; 83036; 85025; 99212; 99397

== ENCOUNTER 2025-04-02 10:08 | Outpatient (AMB) | payer MEDICARE, SELFPAY ==
--- NOTE | 2025-04-02 11:11 | A.OFFPC_ITS ---
Vital Signs 04/02/25 11:12 Height 6 ft Weight 183 lb 6 oz BMI 24.9 BP 110/70 Blood Pressure Location Lt brachial Position Sitting Pulse 82 Pulse Source Pulse Oximeter Temp 97.5 F Temp Source Temporal Artery Scan Pulse Oximetry (%) 97 Oxygen Delivery Method Room Air Intake Visit Reasons: Annual exam - see comments Intake Note: Patient is here today for a physical. Truck Bench Mechanic Required: Yes Truck Bench Mechanic Language: Lithograph Operator Name: Luli (grand-daughter) Information Interpreted: non-clinical & clinical (Pt decline translation service, prefer granddaughter to translate) Pediatric Immunologist: Present Accompanied by: Grand Child Allergies No Known Allergies Allergy (Verified 04/02/25 11:12) Medication List - Last Reconciled 04/02/25 by Ethel Ochoa MD carvedilol 6.25 mg PO BID 90 days clopidogrel 75 mg PO DAILY dextromethorphan-guaifenesin 5-100 mg/5 mL (Robitussin Cough-Chest Congestion DM) 10 mL PO Q4-8H PRN fluticasone propionate 50 mcg/actuation 1 spray intranasal DAILY 5 days gabapentin 400 mg PO BID 90 days irbesartan-hydrochlorothiazide 300-12.5 mg 1 tab PO DAILY 90 days levothyroxine 25 mcg PO DAILY metformin 1,000 mg PO BID 90 days omega-3 acid ethyl esters 2 caps PO DAILY 90 days pantoprazole 40 mg PO DAILY 90 days pioglitazone (Actos) 15 mg PO DAILY simvastatin 20 mg PO DAILY 90 days Tobacco use date assessed: 04/02/25 Fall risk assessment: No Falls in past year Last assessed Fall Risk: 04/02/25 Dental Screening Dental Screen Date: 04/02/25 Did you have a dental visit in the last 12 months?: No Did you have a dental problem in the last 6 months where you did not have access to dental care?: No Was dental information given to patient?: No HPI HPI Comments History of Present Illness Details Patient is an 79-year-old male with type 2 diabetes, hyperlipidemia, hypertension, hypothyroidism, coronary artery disease, heart block s/p pacemaker placement presenting, accompanied by his granddaughter for annual physical exam. Reports intermittent productive cough for the past 2 weeks, accompanied by runny nose, nasal congestion. Denies fever, chills, facial pain, shortness of breath or chest pain. Use NyQuil that did not alleviate symptoms. For his diabetes, he is on metformin 1000 mg twice a day and pioglitazone 50 mg daily. He reports he had an eye exam earlier this year at [place], but does not remember the name of the place or the doctor. urine microalbumin done 10/2024. A1c 8.2 today, which has much improved from 8.9 last time. Patient reports he is trying to eat less of the carbohydrates. Reports compliance with all other medications. Declines flu, pneumonia and Shingrix vaccines today. FORMERLY [facility], 1928–1983 Medical History Atherosclerotic cardiovascular disease Surgical History S/P knee surgery History of prostate surgery S/P eye surgery S/P cardiac pacemaker procedure Family History Mother No problems noted. Father No problems noted. Social History Housing: House Alcohol intake: never Patient Tobacco Use Status: Never used Tobacco e-Cigarette/Vaping Use: Never Used Second Hand Smoke Exposure: No service: No Current occupational status: retired Cognitive needs: Yes (Cane) Hearing needs: No Vision needs: No Questionnaire Thrive Questionnaire Date Thrive assessed: 09/30/24 I am a: Parent/Caregiver What is your living situation today?: I have a steady place to live Within the past 12 months, did the food you bought not last and you didn't have the money to get more?: Never true Within the past 12 months, did you worry whether your food would run out before you got money to buy more?: Never true Do you have trouble paying for medicines?: No Do you have trouble getting transportation to medical appointments?: No Do you have trouble paying your heating and electricity bill?: No Do you have trouble taking care of your child, family member or friend?: No Do you have trouble with day-to-day activities such as bathing, preparing meals, shopping, managing finances, etc.?: No Are you currently unemployed and looking for a job?: No Are you interested in more education?: No Please select the resources that you would like help with: None Currently or been in a relationship where the following occur: I choose not to answer THRIVE Score: 0 TIM-7 AMB Questionnaire TIM-7 Date TIM - 7 assessed: 04/02/25 Feeling nervous, anxious, or on edge: 0 = Not at all Not being able to stop or control worryin = Not at all Worrying too much about different things: 0 = Not at all Trouble relaxin = Not at all Being so restless that it is hard to sit still: 0 = Not at all Becoming easily annoyed or irritable: 0 = Not at all Feeling afraid as if something awful might happen: 0 = Not at all Total TIM-7 score (0-4 normal; 5-9 mild; 10-14 moderate; 15-21 severe): 0 Source: Developed by Drs. Didier Webb, Flaquita Dallas, Joel Terrazas and colleagues, with an educational tayler from [employer]. Physical exam (Primary Care) Vital Signs: Last Vital Signs Temp 97.5 F 04/02/25 11:12 Pulse 82 04/02/25 11:12 BP 110/70 04/02/25 11:12 Pulse Ox 97 04/02/25 11:12 Oxygen Delivery Method Room Air 04/02/25 11:12 General: Well-appearing, alert, oriented ?3, in no acute distress. HEENT: Normocephalic, atraumatic, PERRLA, EOMI, no scleral icterus. External ears normal, cerumen noted in bilateral ears. Nares patent, normal mucosa pink, no discharge. No oral lesions, or pharyngeal erythema. Neck Supple. Cardiovascular: RRR, S1-S2 appreciated, no murmurs, rubs or gallops. Respiratory: Lungs clear to auscultation bilaterally, no wheezes, rales or rhonchi. Abdomen: Soft, nontender, nondistended. Normoactive bowel sounds. Neurologic: Alert and oriented X3, cranial nerves II?XII grossly intact, sensation and strength intact in bilateral lower and upper extremities. BMI result Body Mass Index 24.9 Tobacco/Smoking Status: Tobacco use Status Tobacco use date assessed 04/02/25 04/02/25 11:18 Patient Tobacco Use Status Never used Tobacco 04/02/25 11:18 e-Cigarette/Vaping Use Never Used 04/02/25 11:18 Thrive Assessment: Date of Thrive Assessment Date Thrive assessed 09/30/24 04/02/25 11:18 Currently or been in a relationship where the following occur: I choose not to answer Coding Level of Care Code Est Pt Level 3 (13027) Est Pt Prev Care >65y(09151) Diagnoses Annual physical exam Z00.00 Type 2 diabetes mellitus with hyperglycemia, without long-term current use of insulin E11.65 Diabetes mellitus penitentiary insulin use: without penitentiary use Diabetes mellitus complication status: with hyperglycemia Cough, unspecified type R05.9 Cough type: unspecified Influenza vaccination declined Z Assessment & Plan Assessment & Plan (1) Annual physical exam: Code(s): Z00.00 - Encounter for general adult medical examination without abnormal findings Plan: Declines flu, pneumonia and shingles vaccines. (2) DMII (diabetes mellitus, type 2): Code(s): E11.9 - Type 2 diabetes mellitus without complications Category: Medical Qualifiers: Diabetes mellitus penitentiary insulin use: without terminal block assembler use Diabetes mellitus complication status: with hyperglycemia Qualified Code(s): E11.65 - Type 2 diabetes mellitus with hyperglycemia Plan: on metformin 1000 mg twice a day and pioglitazone 50 mg daily. He reports he had an eye exam earlier this year at [place], but does not remember the name of the place or the doctor. urine microalbumin done 10/2024. A1c 8.2 today, still uncontrolled but much improved from 8.9 last time. Continue on same regimen, and emphasized lifestyle changes. Patient is actively trying to cut down on carbohydrates and sugars. Follow up in 3 months (3) Cough: Code(s): R05.9 - Cough, unspecified Qualifiers: Cough type: unspecified Qualified Code(s): R05.9 - Cough, unspecified Plan: The patient presents with a two-week history of a productive cough with rhinorrhea and congestion, without systemic symptoms like fever or dyspnea. Test for COVID/flu/RSV. Robitussin p.r.n. cough Flonase nasal spray once daily for 5 days Use Tylenol p.r.n. aches and pains Avoid using NSAIDs like ibuprofen or naproxen. (4) Influenza vaccination declined: Code(s): Z28.21 - Immunization not carried out because of patient refusal Category: Medical Plan: Declined Orders: Orders SARS-CoV2/FLU/RSV Today R05.9 - Cough, unspecified Medications: New dextromethorphan-guaifenesin 5-100 mg/5 mL (Robitussin Cough-Chest Congestion DM) 10 mL PO Q4-8H PRN 500 mL 0RF cough fluticasone propionate 50 mcg/actuation administer into each nostril 1 spray intranasal DAILY 16 grams 0RF 5 days
[2025-04-02 11:12] VITALS: BP 110/70; PULSE 82; TEMP 36.4; O2SAT 97; BMI 24.9
== END 2025-04-02 11:46 | disposition home or self-care (01) ==
LOC: HO.HMCH 10:09
PROVIDERS: PCP Physician Assistant; Visit Provider Student in an Organized Health Care Education/Training Program
DX: Z00.00 Encounter for general adult medical examination without abnormal findings (principal); E11.65 Type 2 diabetes mellitus with hyperglycemia; R05.9 Cough, unspecified; Z28.21 Immunization not carried out because of patient refusal

== ENCOUNTER 2025-04-04 08:53 | Outpatient (REF) | payer MEDICARE, SELFPAY ==
[2025-04-04 10:03] LABS: Resp Syncy Virus RNA Qual PCR NEGATIVE (Negative); SARS COV2 PCR INHOUSE NEGATIVE (Negative)
== END 2025-04-04 08:54 | disposition home or self-care (01) ==
LOC: HO.LAB 08:53
PROVIDERS: PCP Student in an Organized Health Care Education/Training Program; Visit Provider Student in an Organized Health Care Education/Training Program
DX: Z03.818 Encounter for observation for suspected exposure to other biological agents ruled out (principal)
CPT/HCPCS: 87637